=== PATIENT | female | born 1980 | race Caucasian/White ===

== ENCOUNTER 2019-04-08 10:42 | Emergency (ER) | payer OTHER, SELFPAY ==
[2019-04-08 10:47] VITALS: BP 161/94; PULSE 85; RESP 16; TEMP 36.4; O2SAT 95
--- NOTE | 2019-04-08 11:10 | DI.US.S_ITS ---
PROCEDURE: US PELVIC COMPLETE INDICATIONS: RIGHT PELVIC PAIN, PLEASE LOOK FOR APPY, TOO, IF POSSIBLE TECHNIQUE: Real-time scanning was performed of the pelvic organs, with image documentation. Additional endovaginal scanning was necessary due to incomplete visualization of the adnexal and endometrial structures by transabdominal scanning. COMPARISON: None. FINDINGS: Transabdominal scanning: Limited scanning through the kidneys shows no hydronephrosis. No pathologic free abdominal or pelvic fluid. Endovaginal scanning: Uterus: Uterus is normal in size at 7.5 x 5.3 x 3.8 cm. The endometrium measures 8 mm in combined thickness. There is a small subserosal fibroid along the surface of the uterus that is positional in the mid aspect of the anterior uterus measuring up to 1.4 cm. No significant fluid is seen within the endometrium. The cervix is within normal limits. Ovaries: The right ovary measures 2.5 x 2.2 x 1.9 cm. The left ovary measures 3.8 x 3.8 x 1.7 cm. Both ovaries are normal in size. No cystic or solid abnormality is appreciated. Follicles are present on both ovaries. Other: The appendix is not definitely seen. However, sonographic imaging of the right lower quadrant demonstrates multiple borderline prominent lymph nodes within the ileocolic region. No free fluid or loculated fluid collections are evident. IMPRESSION: 1. Unremarkable ovaries. 2. Small subserosal uterine fibroid. 3. The appendix is not definitely seen. Borderline prominent right lower quadrant lymph nodes are evident. Please correlate clinically to exclude mesenteric adenitis. If there is high clinical concern for acute appendicitis, a contrast enhanced CT of the abdomen and pelvis is recommended for further evaluation. Dictated by: Pramod Ramos M.D. on 04/08/2019 at 12:14 Approved by: Pramod Ramos M.D. on 04/08/2019 at 12:20
--- NOTE | 2019-04-08 11:10 | DI.US.S_ITS ---
PROCEDURE: US PERIPH VENOUS LOW EXTREM RT INDICATIONS: RIGHT LEG PAIN, POST-OP AND CANCER PATIENT TECHNIQUE: Real-time imaging, as well as color and pulse Doppler interrogation, were performed of the lower extremity deep veins from the inguinal ligament to the popliteal fossa. COMPARISON: None. FINDINGS: The common femoral, femoral and popliteal veins are normally compressible, and free of intraluminal thrombus. Color and pulse Doppler demonstrate normal phasic intraluminal flow. There is normal augmentation response to distal compression maneuver. Targeted sonographic imaging along the lateral aspect of the upper thigh demonstrates no sonographic fluid collection or solid mass. IMPRESSION: No evidence of deep vein thrombosis of the right lower extremity. Dictated by: Pramod Ramos M.D. on 04/08/2019 at 11:58 Approved by: Pramod Ramos M.D. on 04/08/2019 at 11:59
--- NOTE | 2019-04-08 11:12 | ED.EXTPRO ---
HPI - Extremity Problem General Chief complaint: Extremity Problem,Nontraumatic Stated complaint: Rt leg and groin pain Time Seen by Provider: 04/08/19 10:50 Source: patient Mode of arrival: ambulatory Limitations: no limitations History of Present Illness HPI Narrative: Patient presents the emergency department complaining of right groin pain. Patient is currently postop day 5 after a left mastectomy for 2 malignant breast masses. She states she has been getting up and about after the surgery, and going for walks with her . She states that she has not had any fevers or chills. No dysuria. She states her appetite has been somewhat decreased. No right lower quadrant pain. No pelvic pain. No back pain currently. Patient has never been a smoker. She was on control pills until about 1 month ago, when she was taken off of them secondary to the cancer. Patient denies any history of known DVT in any family members, but states her mother did have varicose veins and may have had clots and nose. Patient states she has noticed clots in her drain from her mastectomy site, and wonders if she ?clots easily?. Patient has not had a known injury to the inguinal area. She states that the pain feels like a ?muscle soreness? and seems to be a little worse when she raises her right leg. She has not noticed any swelling in her legs. Related Data Home Medications Medication Instructions Recorded Confirmed solifenacin [Vesicare] 10 mg PO DAILY 04/08/19 04/09/19 Allergies Allergy/AdvReac Type Severity Reaction Status Date / Time ibuprofen AdvReac Mild Nausea Verified 04/09/19 16:19 Review of Systems Constitutional Denies chills, Denies fever(s), Denies lethargy and Denies weakness Eyes Denies change in vision, Denies eye discharge, Denies irritation and Denies loss of vision ENT Ears, Nose, Mouth, and Throat: Denies change in voice, Denies neck pain and Denies sore throat Cardiovascular Denies chest pain, Denies irregular heart rhythm, Denies lightheadedness, Denies palpitations, Denies dyspnea, Denies dyspnea on exertion and Denies orthopnea Respiratory Denies cough, Denies dyspnea, Denies dyspnea on exertion and Denies wheezing Gastrointestinal Gastrointestinal: Denies abdominal pain, Denies change in bowel habits, Denies diarrhea, Denies nausea and Denies vomiting Genitourinary Denies hematuria, Denies flank pain, Denies urinary incontinence and Denies urinary urgency Musculoskeletal Denies neck pain Comments: Right inguinal pain Integumentary/Breasts Denies pruritus, Denies erythema, Denies rash and Denies wounds Neurologic Denies confusion, Denies loss of vision and Denies weakness Psychiatric Denies anxiety, Denies confusion, Denies depression, Denies homicidal ideation and Denies suicidal ideation Endocrine Denies palpitations Hematologic/Lymphatic Denies easy bruising Allergic/Immunologic Denies wheezing [facility] Medical History Breast cancer (Acute) Surgical History H/O left mastectomy (Acute ~04/03/19) Social History Smoking Status: Never smoker Social History Smoking Status: Never smoker Exam Initial Vital Signs Initial Vital Signs: Vital Signs Temperature 97.5 F L 04/08/19 10:47 Pulse Rate 85 04/08/19 10:47 Respiratory Rate 16 04/08/19 10:47 Blood Pressure 161/94 H 04/08/19 10:47 Pulse Oximetry 95 04/08/19 10:47 Const General: cooperative and well developed Nutritional Appearance: well nourished Orientation: alert, awake, oriented x3 and not confused [facility] Head: normocephalic and atraumatic Ears: external ears normal and TM's normal bilaterally Nose: external nose normal and No nasal discharge Face and sinus: sinuses nontender, face symmetric, no sinus tenderness and No dry mucous membranes Mouth: oral mucosae normal and moist mucous membranes Teeth and gingiva: dentition normal Throat: tonsils normal and uvula midline Eyes General: appearance normal, both eyes and all related structures Eyelids: eyelids normal Conjunctivae: conjunctivae normal Sclera: sclerae normal Pupils: PERRL EOM: EOM intact bilaterally Neck Neck: normal visual inspection, trachea midline, No lymphadenopathy, No midline deformity and No JVD Lymphatic: No lymphedema Chest Chest: normal inspection of the chest Resp Effort & Inspection: normal respiratory effort, able to speak in complete sentences, no respiratory distress and no use of accessory muscles Auscultation: clear to auscultation bilaterally, no rales, no rhonchi and no wheezes Cardio Rate: regular rate Rhythm: regular rhythm Heart Sounds: no click, no gallops, no murmurs and no rubs Pulses: normal peripheral pulses GI Inspection: non-distended Palpation: soft, no hepatosplenomegaly, No guarding, No pulsatile mass and tender (Mild, right lower quadrant and pelvis) Auscultation: normal bowel sounds Back/Spine/Pelvis Back: No CVA tenderness Cervical Spine: cervical ROM normal and No pain with cervical ROM Thoracic/Lumbar Spine: thoracic and lumbar spine normal to inspection Skin General: no rashes or lesions noted, No jaundice and No petechiae Neuro General: alert, oriented x3, gait normal and no focal motor deficits Speech: speech normal Extrem General: full ROM, no clubbing, cyanosis or edema, no pedal edema and no calf tenderness Other: Moderate tenderness over right inguinal ligament and hip flexor origins. Femoral pulse is strong and intact. No calf tenderness or swelling. No tenderness of the distal quadriceps musculature on the right. Psych Appearance: well kempt Mental Status: mental status grossly normal Attitude: cooperative Thought Content: normal and suicidality Judgment: judgment good Course Course Narrative: Patient was worked up with laboratory studies, as well as ultrasound of the right lower extremity and the pelvis. Labs were unremarkable. Ultrasound demonstrated no DVT. Pelvic ultrasound was also unremarkable. Patient declined pain medication in the emergency department. I have discussed with the patient and her the results of diagnostic testing, and that I feel the patient's symptoms are most likely due to muscular strain. We have discussed home management of the symptoms, as well as the usual indications for return. Orders Ordered: Discontinued Medications Ibuprofen (Advil) 800 mg PO NOW ONE Stop: 04/08/19 11:13 Last Admin: 04/08/19 11:21 Dose: 800 mg Documented by: KEYLA Vital Signs - 8 hr 04/08/19 10:47 Temperature 97.5 F L Pulse Rate 85 Respiratory Rate 16 Blood Pressure 161/94 H Pulse Oximetry 95 MDM - Extremity (Nontraumatic) Medical Records Attestation: I reviewed the patient's medical records. Lab Data Attestation: I reviewed the patient's lab results. Result diagrams: 04/08/19 10:53 04/08/19 10:53 Lab Results 04/08/19 04/08/19 Range/Units 10:53 10:53 WBC 7.9 (4.5-11.0) X10^3/uL RBC 4.39 (4.0-5.2) X10^6/uL Hgb 14.1 (12.0-16.0) g/dL Hct 40.5 (36-46) % MCV 92.2 (80-100) fL MCH 32.0 (26-34) PG MCHC 34.7 (30-36) % RDW 13.2 (11.6-14.8) % Plt Count 312 (150-400) X10^3/uL Neut % (Auto) 72.7 (50-75) % Lymph % (Auto) 21.9 L (25-40) % [place] % (Auto) 4.0 (3-14) % Eos % (Auto) 0.9 L (2-4) % Baso % (Auto) 0.5 (0-2) % Neut # (Auto) 5800 (3920-1281) /uL Lymph # (Auto) 1700 (2926-0709) /uL [place] # (Auto) 300 (0-900) /uL Eos # (Auto) 100 (0-450) /uL Baso # (Auto) 0 (0-100) /uL Sodium 138 (137-145) mmol/L Potassium 4.1 (3.4-5.1) mmol/L Chloride 105 (98-107) mmol/L Carbon Dioxide 23 (22-32) mmol/L BUN 6 L (7-17) mg/dL Creatinine 0.40 L (0.52-1.04) mg/dL Estimated GFR > 60.0 (>60) mL/min BUN/Creatinine Ratio 15.0 (6-22) Glucose 106 H (70-100) mg/dL Calcium 9.7 (8.4-10.2) mg/dL Total Bilirubin 0.6 (0.2-1.3) mg/dL AST 39 H (14-36) IU/L ALT 24 (9-52) IU/L Alkaline Phosphatase 112 (38-126) U/L Total Protein 7.8 (6.3-8.2) g/dL Albumin 4.6 (3.5-5.0) g/dL Globulin 3.2 (1.7-4.1) g/dL Albumin/Globulin Ratio 1.4 (1.0-2.8) Imaging Data Venous US: Radiologist's impression: PROCEDURE: US PERIPH VENOUS LOW EXTREM RT INDICATIONS: RIGHT LEG PAIN, POST-OP AND CANCER PATIENT TECHNIQUE: Real-time imaging, as well as color and pulse Doppler interrogation, were performed of the lower extremity deep veins from the inguinal ligament to the popliteal fossa. COMPARISON: None. FINDINGS: The common femoral, femoral and popliteal veins are normally compressible, and free of intraluminal thrombus. Color and pulse Doppler demonstrate normal phasic intraluminal flow. There is normal augmentation response to distal compression maneuver. Targeted sonographic imaging along the lateral aspect of the upper thigh demonstrates no sonographic fluid collection or solid mass. IMPRESSION: No evidence of deep vein thrombosis of the right lower extremity. Dictated by: Pramod Ramos M.D. on 04/08/2019 at 11:58 Approved by: Pramod Ramos M.D. on 04/08/2019 at 11:59 Pelvic ultrasound: Radiologist's impression: PROCEDURE: US PELVIC COMPLETE INDICATIONS: RIGHT PELVIC PAIN, PLEASE LOOK FOR APPY, TOO, IF POSSIBLE TECHNIQUE: Real-time scanning was performed of the pelvic organs, with image documentation. Additional endovaginal scanning was necessary due to incomplete visualization of the adnexal and endometrial structures by transabdominal scanning. COMPARISON: None. FINDINGS: Transabdominal scanning: Limited scanning through the kidneys shows no hydronephrosis. No pathologic free abdominal or pelvic fluid. Endovaginal scanning: Uterus: Uterus is normal in size at 7.5 x 5.3 x 3.8 cm. The endometrium measures 8 mm in combined thickness. There is a small subserosal fibroid along the surface of the uterus that is positional in the mid aspect of the anterior uterus measuring up to 1.4 cm. No significant fluid is seen within the endometrium. The cervix is within normal limits. Ovaries: The right ovary measures 2.5 x 2.2 x 1.9 cm. The left ovary measures 3.8 x 3.8 x 1.7 cm. Both ovaries are normal in size. No cystic or solid abnormality is appreciated. Follicles are present on both ovaries. Other: The appendix is not definitely seen. However, sonographic imaging of the right lower quadrant demonstrates multiple borderline prominent lymph nodes within the ileocolic region. No free fluid or loculated fluid collections are evident. IMPRESSION: 1. Unremarkable ovaries. 2. Small subserosal uterine fibroid. 3. The appendix is not definitely seen. Borderline prominent right lower quadrant lymph nodes are evident. Please correlate clinically to exclude mesenteric adenitis. If there is high clinical concern for acute appendicitis, a contrast enhanced CT of the abdomen and pelvis is recommended for further evaluation. Dictated by: Pramod Ramos M.D. on 04/08/2019 at 12:14 Approved by: Pramod Ramos M.D. on 04/08/2019 at 12:20 Discharge Plan Departure Patient Disposition: Home Clinical Impression: Inguinal strain Qualifiers: Encounter type: initial encounter Laterality: right Qualified Code(s): S76.211A - Strain of adductor muscle, fascia and tendon of right thigh, initial encounter Discharge Date/Time: 04/08/19 14:16 Instructions: DI for Muscle Strain Activity Restrictions/Additional Instructions: Your labs and ultrasounds look good. There is no free fluid to indicate inflammation of the appendix. Additionally, you have minimal tenderness over the appendix, and the symptoms of right groin and thigh pain are not typical of appendicitis. No blood clot is seen in your leg circulation, and the blood vessels appear patent. Most likely, the soreness in your inguinal area and upper thigh are muscular in origin, and will resolve on their own. Please follow up with your surgeon, as planned, and your primary doctor, as needed. Prescriptions: No Action solifenacin [Vesicare] 10 mg Tablet 10 mg PO DAILY RF: 0 Referrals: [facility] [Provider Group]
[2019-04-08] MEDS: IBUPROFEN 400 MG TABLET 800 MG PO (11:21)
[2019-04-08 11:29] LABS: Alanine Aminotransferase 24 IU/L (9-52); Albumin 4.6 g/dL (3.5-5.0); Albumin Globulin Ratio 1.4 (1.0-2.8); Alkaline Phosphatase 112 U/L (38-126); Aspartate Aminotransferase 39 IU/L (14-36); Bilirubin Total 0.6 mg/dL (0.2-1.3); Blood Urea Nitrogen 6 mg/dL (7-17); Calcium 9.7 mg/dL (8.4-10.2); Carbon Dioxide 23 mmol/L (22-32); Chloride 105 mmol/L (98-107); Estimated Glomerular Filt Rate > 60.0 mL/min (>60); Globulin 3.2 g/dL (1.7-4.1); Glucose 106 mg/dL (70-100); HEMOLYSIS 19 (0-50); Potassium 4.1 mmol/L (3.4-5.1); Sodium 138 mmol/L (137-145); Total Protein 7.8 g/dL (6.3-8.2)
[2019-04-08 11:33] LABS: Add Manual Diff / Slide Review NO; Basophils Absolute Auto 0 /uL (0-100); Basophils Percent Auto 0.5 % (0-2); Eosinophils Absolute Auto 100 /uL (0-450); Eosinophils Percent Auto 0.9 % (2-4); Hematocrit 40.5 % (36-46); Hemoglobin 14.1 g/dL (12.0-16.0); Lymphocytes Absolute Auto 1700 /uL (1100-4500); Lymphocytes Percent Auto 21.9 % (25-40); Mean Corpuscular HGB Conc 34.7 % (30-36); Mean Corpuscular Volume 92.2 fL (80-100); Monocytes Absolute Auto 300 /uL (0-900); Neutrophils Absolute Auto 5800 /uL (1500-7000); Neutrophils Percent Auto 72.7 % (50-75); Platelet Count 312 X10^3/uL (150-400); Red Blood Cell Count 4.39 X10^6/uL (4.0-5.2); Red Cell Distribution Width 13.2 % (11.6-14.8); White Blood Cell Count 7.9 X10^3/uL (4.5-11.0)
[2019-04-08 14:05] VITALS: BP 155/85; PULSE 59; RESP 14; O2SAT 98
== END 2019-04-08 14:16 | disposition home or self-care (01) ==
PROVIDERS: Emergency Provider Emergency Medicine
DX: S76.211A Strain of adductor muscle, fascia and tendon of right thigh, initial encounter (principal)
CPT/HCPCS: 36591; 76856; 80053; 85025; 93971; 99282; 99284

== ENCOUNTER → 2019-04-09 16:09 | Outpatient (CLI) | payer OTHER, SELFPAY ==
--- NOTE | 2019-04-09 16:11 | DI.RAD.S_ITS ---
PROCEDURE: XR FACIAL BONES MIN 3V INDICATIONS: pain of left side of nose and by eye after hitting it TECHNIQUE: 3 views of the facial bones were acquired. COMPARISON: None. FINDINGS: Sinuses: Visualized sinuses demonstrate no air-fluid levels or mucosal thickening. Bones: No fractures. No suspicious bony lesions. Orbital rims and zygomatic arches appear intact. Soft tissues: No suspicious soft tissue densities. IMPRESSION: No facial bone fractures. Dictated by: Denisse Bowers M.D. on 04/09/2019 at 16:54 Approved by: Denisse Bowers M.D. on 04/09/2019 at 16:55
== END ==
PROVIDERS: Visit Provider Physician Assistant
DX: R51 Headache (principal); W22.8XXA Striking against or struck by other objects, initial encounter
CPT/HCPCS: 70150

== ENCOUNTER 2019-06-17 11:05 | Day surgery (SDC) | payer OTHER, SELFPAY ==
[2019-06-12 15:23] VITALS: BMI 25.4
[2019-06-17] VITALS (8 sets, daily range): BP systolic 153–164; BP diastolic 84–99; PULSE 66–95; RESP 5–17; TEMP 35.9–36.8; O2SAT 92–100; BMI 24.6
--- NOTE | 2019-06-17 | DI.RAD.S_ITS ---
PROCEDURE: XR CHEST 1V INDICATIONS: PORT A CATH TECHNIQUE: One view of the chest was acquired. COMPARISON: None. FINDINGS: Surgical changes and devices: Right chest Port-A-Cath, the tip of which projects to the superior vena cava. Lungs and pleura: Lungs are clear. No pleural effusions or pneumothorax. Mediastinum: Mediastinal contours appear normal. Heart size is normal. Bones and chest wall: No suspicious bony lesions. Overlying soft tissues appear unremarkable. IMPRESSION: Status post right Port-A-Cath placement with no evidence of pneumothorax Dictated by: Zelalem Lr M.D. on 06/17/2019 at 16:37 Approved by: Zelalem Lr M.D. on 06/17/2019 at 16:38
[2019-06-17] MEDS: LACTATED RINGERS 1,000 ML 100 ML IV (11:55)
--- NOTE | 2019-06-17 13:02 | PM.HP.1 ---
History of Present Illness History of Present Illness Date Patient Seen: 06/17/19 Time Patient Seen: 13:02 Chief complaint: [id number] Narrative: The patient is a woman who underwent a left-sided mastectomy for 2 separate breast cancers in the same breast. This was done in March of this year. She was in the process of moving and then has delayed somewhat her treatment. She is now about to start treatment for her breast cancer and I was asked to place a port. the mastectomy was done in [facility]. Patient History Medical History Breast cancer (Acute) Former smoker (Acute) History of UTI (Acute) Prolactinoma (Acute) Urinary frequency (Acute) Surgical History H/O left mastectomy (Acute 04/03/19) Family & Social History Social History: household members spouse Tobacco & Substance use: Smoking Status Never smoker alcohol intake never alcohol intake frequency 0-2 drinks per day Substance Use Type does not use Meds Home Medications and Allergies Home Medications Medication Instructions Recorded Confirmed Type solifenacin [Vesicare] 10 mg PO DAILY 04/08/19 06/17/19 History Allergies Allergy/AdvReac Type Severity Reaction Status Date / Time ibuprofen AdvReac Mild Nausea Verified 06/17/19 11:22 Review of Systems Review of Systems ROS Unobtainable: All systems reviewed & are unremarkable except as noted in HPI and below Exam Vital Signs (past 8 hours): - 06/17/19 11:27 Temperature 98.2 F Pulse Rate 74 Respiratory Rate 16 Blood Pressure 154/99 H Pulse Oximetry 99 Oxygen Delivery Method Room Air Narrative Exam Narrative: Operative no apparent distress. Her neck is supple. No nodes in the neck or supraclavicular areas. Lungs are clear to auscultation without rales or rhonchi. Heart regular rate and rhythm without murmur gallop. Her mastectomy site is well-healed. No rashes of the chest wall. Assessment & Plan Assessment & Plan narrative: Patient for placement of a Port-A-Cath. I have discussed the procedure and rationale with her. Risks of bleeding, infection, lung collapse, DVT with arm swelling or pulmonary embolism all discussed with her. She appears to understand wishes to proceed.
--- NOTE | 2019-06-17 13:07 | PM.PREOP ---
Pre-operative Note Interval Note History & Physical reviewed/Exam performed by Physician: Yes Changes to H&P: No
[2019-06-17] MEDS: CEFAZOLIN 2 GM/100 ML FROZ.PIGGY IV (13:09)
--- NOTE | 2019-06-17 13:30 | SUR.OPER ---
Supine on padded OR bed, head on gel donut, towel roll between patient's shoulders, arms padded and tucked at sides, legs uncrossed, safety belt at thigh.
[2019-06-17] MEDS: HEPARIN 5,000 UNIT, SODIUM CHLORIDE 0.9% 50 ML IV (13:36)
[2019-06-17] MEDS: LIDOCAINE 1% 20 ML INJ (13:36)
--- NOTE | 2019-06-17 14:13 | P.OP_ITS ---
Operative Date/Time/Diagnoses Date of procedure: 06/17/19 Time of procedure: 14:00 Pre-op diagnosis: Breast cancer left-sided Post-op diagnosis: same Procedure & Clinicians Procedure: Placement of right subclavian Port-A-Cath Same procedure as scheduled: Yes Indications: IV access for chemotherapy Surgeon: Be Chakraborty Click Yes if Unassisted: Yes Anesthesia Type: General Operative Notes Findings: Tip in the SVC. No pneumothorax. Closure Type: primary Specimen(s): none sent Prosthetic devices, grafts, tissues, transplants, or devices: Port Estimated Blood Loss (mL): 5 Blood products transfused: none Procedure in detail: The patient is placed supine on the operating table underwent general LMA anesthesia. She was prepped and draped in the usual fashion. Rule it been placed between her shoulders. She is placed in Trendelenburg a field block was performed under the right clavicle. Transverse incision was made and carried in the subcu fat. A pocket was created above the fascia. Needle was inserted on 1st attempt in the subclavian vein. The guidewire was passed through the needle and the needle removed. The wire appeared to be going in the appropriate location. Dilator and introducer were passed over the guidewire and the guide where and dilator were removed leaving the introducer in place. The Port-A-Cath was tapered to appropriate length. It was inserted into the pocket and then the catheter was inserted into the introducer. The introducer was peeled away leaving the catheter tip in the distal SVC. The subcu was closed with interrupted 3 0 Vicryl. The skin was tosin sed with a running 4 0 Vicryl subcuticular stitch and Steri-Strips. The patient was awakened and extubated taken recovery room good condition. Complications: none Post-operative Condition: stable Disposition: PACU
== END 2019-06-17 14:55 | disposition home or self-care (01) ==
PROVIDERS: Visit Provider Specialist
PROC: (CPT 36561; principal; 2019-06-17 12:00)
DX: C50.812 Malignant neoplasm of overlapping sites of left female breast (principal); Z45.2 Encounter for adjustment and management of vascular access device; Z17.0 Estrogen receptor positive status [ER+]; Z17.1 Estrogen receptor negative status [ER-]
CPT/HCPCS: 36561; 36415; 71045; 76000; 80053; 85025; C1788; J0690; J1100; J1644; J2405; J2704; J3010

== ENCOUNTER → 2019-06-20 06:57 | Outpatient (CLI) | payer OTHER, SELFPAY ==
--- NOTE | 2019-06-20 06:59 | DI.ECHO.S_ITS ---
[facility] +---------+ [facility] +---------+ : : [address] : [place] [address] : : : : [id number] : : : : Phone: [phone]+ Echocardiogram Report + + :Name: SYLVIA BOWLES Study Date: 06/20/2019 Height: 60 in : :[facility] Weight: 132 lb : : Gender: Female BSA: 1.6 m2 : :: 1980 Age: 39 yrs BP: 140/98 mmHg: :Reason For Study: BREAST CA : : Performed By: Yash aDvis : :Referring: KARLA ROWLAND : + + Interpretation Summary There is normal left ventricular wall thickness. The ejection fraction is estimated to be 60-65%. There is no significant valvular heart disease. Procedure: A two-dimensional transthoracic echocardiogram with color flow and Doppler was performed. The study quality was technically good. There is no prior echocardiogram noted for this patient. The patient was in normal sinus rhythm during the exam. Left Ventricle: The left ventricle is normal in size. There is normal left ventricular wall thickness. The ejection fraction is estimated to be 60-65%. There are no focal wall motion abnormalities. Right Ventricle: The right ventricle is normal in size and function. Atria: Both atria are normal in size. The interatrial septum is intact with no evidence for an atrial septal defect. Mitral Valve: The mitral valve is normal in structure and function. There is trace mitral regurgitation. Aortic Valve: The aortic valve is trileaflet. The aortic valve opens well. No aortic regurgitation is present. Tricuspid Valve: The tricuspid valve is normal in structure and function. There is trace tricuspid regurgitation. The right ventricular systolic pressure is estimated to be at least 19 mmHg based on an estimated right atrial pressure of 3 mm Hg. Pulmonic Valve: The pulmonic valve is normal in structure and function. There is trace pulmonic regurgitation. Great Vessels: The aortic root is normal size. The dimensions of the ascending aorta are normal. The pulmonary artery is normal size. The IVC is of normal diameter and collapses greater than 50% with a sniff. This suggests a low right atrial pressure of 3 mm Hg. Pericardium/ Pleura There is no pericardial effusion. There is no pleural effusion. MMode/2D Measurements & Calculations LVIDd: 4.6 cm LVOT diam: 2.1 cm LVIDs: 3.4 cm Ao root diam: 2.6 cm FS: 26.7 % Aortic Jxn: 2.1 cm EPSS: 0.53 cm asc Aorta Diam: 3.2 cm IVSd: 0.55 cm LVPWd: 0.62 cm LV morris. diameter/BSA (cm/m^2): 2.9 LV sys. diameter/BSA (cm/m^2): 2.1 LA dimension: 2.8 cm RA long axis: 4.0 cm LA A2 area: 17.0 cm2 RA area: 12.7 cm2 LA A4 area: 16.3 cm2 RA vol: 34.9 ml LA length (vol): 5.2 cm RA : 22.3 ml/m2 LA vol: 45.6 ml IVC diam: 2.0 cm LA vol index: 29.1 ml/m2 Doppler Measurements & Calculations Ao V2 max: 131.2 cm/sec LVOT Max Soren: 94.2 cm/sec Ao V2 mean: 94.4 cm/sec LV V1 max P.5 mmHg Ao max P.9 mmHg LV V1 VTI: 20.8 cm Ao mean P.9 mmHg BARBI(I,D): 2.6 cm2 Ao V2 VTI: 27.7 cm BARBI(V,D): 2.5 cm2 sev ratio: 0.75 BARBI indexed to BSA (cm^2/m^2): 1.6 MV E max soren: 91.7 cm/sec TR max soren: 197.9 cm/sec MV A max soren: 60.0 cm/sec TR max P.7 mmHg MV E/A: 1.5 PA V2 max: 83.2 cm/sec Med Peak E' Soren: 7.7 cm/sec PA V2 mean: 57.8 cm/sec E/E' med: 11.8 PA mean P.5 mmHg Lat Peak E' Soren: 14.2 cm/sec PA pr(Accel): 6.6 mmHg E/E' lat: 6.5 PA Accel Time: 0.16 sec E/e' average: 9.2 MV dec time: 0.13 sec SV(LVOT): 71.4 ml Reading Physician:09:11 AM
== END ==
PROVIDERS: Visit Provider Internal Medicine Hematology & Oncology
DX: C50.812 Malignant neoplasm of overlapping sites of left female breast (principal); Z17.0 Estrogen receptor positive status [ER+]
CPT/HCPCS: 93306

== ENCOUNTER 2019-08-15 20:02 | Emergency (ER) | payer OTHER, SELFPAY ==
[2019-08-15 20:09] VITALS: BP 169/94; PULSE 72; RESP 16; TEMP 36.6; O2SAT 98
[2019-08-15 20:23] LABS: Bacteria Urine None Seen
[2019-08-15 20:25] LABS: Appearance Urine UA CLEAR; Bilirubin Urine UA NEGATIVE (NEGATIVE); Glucose Urine UA TRACE g/dL (Negative); Ketones Urine UA NEGATIVE (NEGATIVE); Leukocyte Esterase Urine UA NEGATIVE (NEGATIVE); Nitrite Urine UA POSITIVE (Negative); Occult Blood Urine UA NEGATIVE (Negative); Protein Urine UA TRACE (Negative); Specific Gravity Urine UA <=1.005 (1.000-1.035)
[2019-08-15 20:28] LABS: Color Urine UA Orange; pH Urine UA 6.5 (4.5-8.0)
[2019-08-15 20:35] LABS: RBC Urine 0-1/HPF (0-5/HPF); WBC Urine 0-1/HPF (0-5/HPF)
[2019-08-15 20:36] LABS: Culture Indicated Urine Specimen Cultured
[2019-08-15 21:02] VITALS: PULSE 72; RESP 18; O2SAT 96
[2019-08-15 22:01] VITALS: BP 127/78; PULSE 63; RESP 19; O2SAT 99
[2019-08-15 22:15] LABS: Add Manual Diff / Slide Review NO; Basophils Absolute Auto 0 /uL (0-100); Basophils Percent Auto 0.3 % (0-2); Eosinophils Absolute Auto 0 /uL (0-450); Hematocrit 33.8 % (36-46); Hemoglobin 11.3 g/dL (12.0-16.0); Lymphocytes Absolute Auto 2100 /uL (1100-4500); Lymphocytes Percent Auto 48.8 % (25-40); Mean Corpuscular HGB Conc 33.5 % (30-36); Mean Corpuscular Hemoglobin 31.3 PG (26-34); Mean Corpuscular Volume 93.5 fL (80-100); Monocytes Absolute Auto 200 /uL (0-900); Monocytes Percent Auto 4.1 % (3-14); Neutrophils Absolute Auto 2000 /uL (1500-7000); Neutrophils Percent Auto 45.8 % (50-75); Platelet Count 269 X10^3/uL (150-400); Red Blood Cell Count 3.62 X10^6/uL (4.0-5.2); Red Cell Distribution Width 14.9 % (11.6-14.8); White Blood Cell Count 4.3 X10^3/uL (4.5-11.0)
[2019-08-15 22:21] LABS: Blood Urea Nitrogen 6 mg/dL (7-17); Calcium 9.3 mg/dL (8.4-10.2); Carbon Dioxide 27 mmol/L (22-32); Chloride 104 mmol/L (98-107); Estimated Glomerular Filt Rate > 60.0 mL/min (>60); Glucose 91 mg/dL (70-100); HEMOLYSIS < 15 (0-50); Potassium 3.6 mmol/L (3.4-5.1); Sodium 140 mmol/L (137-145)
--- NOTE | 2019-08-15 22:31 | ED.FEMALEGU ---
HPI - Female Genitourinary General Chief complaint: Urogenital-Female Stated complaint: thinks kidney or bladder infection Time Seen by Provider: 08/15/19 20:50 Source: patient Mode of arrival: Ambulatory Limitations: no limitations History of Present Illness HPI Narrative: 39-year-old female nonsmoker with breast cancer, currently being treated by chemotherapy every Monday through her port presents with ongoing dysuria, frequency and urgency as well as some suprapubic tenderness. She has had 2 weeks of urinary tract symptoms and has completed 1 week of nitrofurantoin followed by one week of Cipro. Patient denies systemic findings such as fever, chills nor nausea or vomiting. She denies upper respiratory complaints such is runny nose sore throat or cough. She has no chest pain shortness of breath or other. She has an appointment next week with urology. She denies vaginal bleeding or discharge. MD Complaint: dysuria Onset (ago): day(s) Location: suprapubic Severity: mild Quality: Aching Exacerbating factors: urination Urinary symptoms: Difficulty Urinating, Dysuria, Frequency and Urgency Patient : No Related Data Home Medications Medication Instructions Recorded Confirmed solifenacin [Vesicare] 10 mg PO DAILY 04/08/19 07/22/19 losartan 50 mg PO DAILY 07/29/19 07/29/19 Previous Rx's Medication Instructions Recorded hydrocodone-acetaminophen [[place]] 1 tab PO Q4H PRN #10 tab 06/17/19 ondansetron 4 mg PO Q6H PRN #30 tab 06/24/19 lorazepam [Ativan] 0.5 mg PO Q6H PRN #30 tab 06/27/19 lorazepam 1 mg PO BEDTIME PRN #10 tab 07/29/19 ciprofloxacin HCl 500 mg PO BID #14 tab 08/06/19 cephalexin [Keflex] 500 mg PO QID 10 Days #40 cap 08/15/19 Allergies Allergy/AdvReac Type Severity Reaction Status Date / Time ibuprofen AdvReac Mild Nausea Verified 07/08/19 15:06 Review of Systems Constitutional Constitutional: Denies chills, Denies fatigue, Denies fever(s), Denies frequent falls, Denies lethargy and Denies weakness Eyes Eyes: Denies change in vision, Denies eye discharge, Denies irritation and Denies loss of vision ENT Ears, Nose, Mouth, and Throat: Denies change in voice, Denies dizziness, Denies neck pain, Denies sore throat and Denies throat swelling Cardiovascular Cardiovascular: Denies chest pain, Denies irregular heart rhythm, Denies lightheadedness, Denies palpitations, Denies dyspnea, Denies dyspnea on exertion and Denies orthopnea Respiratory Respiratory: Denies cough, Denies dyspnea, Denies dyspnea on exertion and Denies wheezing Gastrointestinal Gastrointestinal: Denies abdominal pain, Denies change in bowel habits, Denies diarrhea, Denies nausea and Denies vomiting Genitourinary Genitourinary: Denies hematuria, Reports dysuria, Denies flank pain, Denies urinary incontinence and Reports urinary urgency Musculoskeletal Musculoskeletal: Denies back pain, Denies muscle weakness, Denies neck pain, Denies numbness and Denies tingling Integumentary/Breasts Skin/Breast: Denies pruritus, Denies erythema, Denies rash and Denies wounds Neurologic Neurologic: Denies behavioral changes, Denies confusion, Denies dizziness, Denies frequent falls, Denies loss of vision, Denies numbness, Denies tingling and Denies weakness Psychiatric Psychiatric: Denies anxiety, Denies behavioral changes, Denies confusion, Denies depression, Denies homicidal ideation and Denies suicidal ideation Endocrine Endocrine: Denies fatigue, Denies flushing and Denies palpitations Hematologic/Lymphatic Hematologic/Lymphatic: Denies easy bruising Allergic/Immunologic Allergic/Immunologic: Denies urticaria, Denies throat swelling and Denies wheezing Patient History Medical History Breast cancer (Acute) Former smoker (Acute) History of UTI (Acute) Prolactinoma (Acute) Urinary frequency (Acute) Surgical History H/O left mastectomy (Acute 04/03/19) alcohol intake frequency: 0-2 drinks per day Substance Use Type: does not use Exam Narrative Exam Narrative: GENERAL: [39] year old patient appears stated age. Well-nourished, well-developed patient, in mild distress. HEAD: Atraumatic. Normocephalic. EYES: Pupils equal round and reactive. Extraocular motions intact. No scleral icterus. No injection or drainage. ENT: Nose without bleeding, purulent drainage. Throat without erythema, tonsillar hypertrophy or exudate. Airway patent. NECK: Trachea midline. Non tender CARDIOVASCULAR: Regular rate and rhythm without murmurs, gallops, or rubs. RESPIRATORY: Clear to auscultation. Breath sounds equal bilaterally. No wheezes, rales, or rhonchi. GASTROINTESTINAL: Abdomen soft, mild suprapubic tenderness, nondistended. EXTREMITIES: No edema or joint tenderness. BACK: Nontender without deformity or crepitance. No flank tenderness. NEURO: AOx3. SKIN: No rash or erythema of visible areas Initial Vital Signs Initial Vital Signs: Vital Signs Temperature 97.9 F 08/15/19 20:09 Pulse Rate 72 08/15/19 20:09 Respiratory Rate 16 08/15/19 20:09 Blood Pressure 169/94 H 08/15/19 20:09 Pulse Oximetry 98 08/15/19 20:09 Course Course Course Narrative: Upon completion of lab evaluation I placed a call to on-call Oncology, Dr. Mayberry, and we sure the opinion that given the patient's rather classic symptoms for UTI and ongoing use of chemotherapy that is in her best interest to be treated, understanding that the labs may have been adversely affected by recent courses of antibiotics. Cultures will be pending. Patient will follow-up closely with her oncology team Monday and urology Monday. She has been given return precautions and understands her diagnosis and plan. Orders Ordered: ED Orders 08/15/19 20:20 UA Complete [Urinalysis and Microscopic] Stat Urine Culture Stat 08/15/19 21:58 Basic Metabolic Panel Stat Complete Blood Count AUTO DIFF Stat Procalcitonin Stat Discontinued Medications Cefazolin Sodium (Keflex 250 Mg Prepack) 1 bottle MISC SEEINSTR ONE Stop: 08/15/19 22:32 Last Admin: 08/15/19 22:36 Dose: 2 cap Documented by: HFARRINGTO Vital Signs Vital signs: Vital Signs - 8 hr 08/15/19 20:09 08/15/19 21:02 08/15/19 22:01 Temperature 97.9 F Pulse Rate 72 72 63 Respiratory Rate 16 18 19 Blood Pressure 169/94 H Blood Pressure [Right Arm] 127/78 Pulse Oximetry 98 96 99 MDM - Female Genitourinary Lab Data Result diagrams: 08/15/19 21:58 08/15/19 21:58 Labs: Lab Results 08/15/19 08/15/19 08/15/19 Range/Units 20:20 21:58 21:58 WBC 4.3 L (4.5-11.0) X10^3/uL RBC 3.62 L (4.0-5.2) X10^6/uL Hgb 11.3 L (12.0-16.0) g/dL Hct 33.8 L (36-46) % MCV 93.5 (80-100) fL MCH 31.3 (26-34) PG MCHC 33.5 (30-36) % RDW 14.9 H (11.6-14.8) % Plt Count 269 (150-400) X10^3/uL Neut % (Auto) 45.8 L (50-75) % Lymph % (Auto) 48.8 H (25-40) % [place] % (Auto) 4.1 (3-14) % Eos % (Auto) 1.0 L (2-4) % Baso % (Auto) 0.3 (0-2) % Neut # (Auto) 2000 (0025-0885) /uL Lymph # (Auto) 2100 (5080-9112) /uL [place] # (Auto) 200 (0-900) /uL Eos # (Auto) 0 (0-450) /uL Baso # (Auto) 0 (0-100) /uL Sodium (137-145) mmol/L Potassium (3.4-5.1) mmol/L Chloride (98-107) mmol/L Carbon Dioxide (22-32) mmol/L BUN (7-17) mg/dL Creatinine (0.52-1.04) mg/dL Estimated GFR (>60) mL/min BUN/Creatinine Ratio (6-22) Glucose (70-100) mg/dL Calcium (8.4-10.2) mg/dL Procalcitonin < 0.05 (<0.5) ng/mL Urine Color [place] Urine Appearance Clear Urine pH 6.5 (4.5-8.0) Ur Specific [place] <=1.005 (1.000-1.035) Urine Protein Trace H (Negative) Urine Glucose (UA) Trace H (Negative) g/dL Urine Ketones Negative (NEGATIVE) Urine Occult Blood Negative (Negative) Urine Nitrate Positive (Negative) Urine Bilirubin Negative (NEGATIVE) Urine Urobilinogen 1.0 (0.2) E.U./dL Ur Leukocyte Esterase Negative (NEGATIVE) Urine RBC 0-1/hpf (0-5/HPF) Urine WBC 0-1/hpf (0-5/HPF) Urine Bacteria None seen (None) Ur Culture Indicated? Specimen cultured 08/15/19 Range/Units 21:58 WBC (4.5-11.0) X10^3/uL RBC (4.0-5.2) X10^6/uL Hgb (12.0-16.0) g/dL Hct (36-46) % MCV (80-100) fL MCH (26-34) PG MCHC (30-36) % RDW (11.6-14.8) % Plt Count (150-400) X10^3/uL Neut % (Auto) (50-75) % Lymph % (Auto) (25-40) % [place] % (Auto) (3-14) % Eos % (Auto) (2-4) % Baso % (Auto) (0-2) % Neut # (Auto) (8093-1601) /uL Lymph # (Auto) (7462-8853) /uL [place] # (Auto) (0-900) /uL Eos # (Auto) (0-450) /uL Baso # (Auto) (0-100) /uL Sodium 140 (137-145) mmol/L Potassium 3.6 (3.4-5.1) mmol/L Chloride 104 (98-107) mmol/L Carbon Dioxide 27 (22-32) mmol/L BUN 6 L (7-17) mg/dL Creatinine 0.50 L (0.52-1.04) mg/dL Estimated GFR > 60.0 (>60) mL/min BUN/Creatinine Ratio 12.0 (6-22) Glucose 91 (70-100) mg/dL Calcium 9.3 (8.4-10.2) mg/dL Procalcitonin (<0.5) ng/mL Urine Color Urine Appearance Urine pH (4.5-8.0) Ur Specific [place] (1.000-1.035) Urine Protein (Negative) Urine Glucose (UA) (Negative) g/dL Urine Ketones (NEGATIVE) Urine Occult Blood (Negative) Urine Nitrate (Negative) Urine Bilirubin (NEGATIVE) Urine Urobilinogen (0.2) E.U./dL Ur Leukocyte Esterase (NEGATIVE) Urine RBC (0-5/HPF) Urine WBC (0-5/HPF) Urine Bacteria (None) Ur Culture Indicated? Discharge Plan Departure Patient Disposition: Home Clinical Impression: Urinary tract infection Qualifiers: Urinary tract infection type: acute cystitis Hematuria presence: without hematuria Qualified Code(s): N30.00 - Acute cystitis without hematuria Discharge Date/Time: 08/15/19 22:41 Instructions: DI for Urinary Tract Infection (UTI) Activity Restrictions/Additional Instructions: *You have been diagnosed with [acute urinary tract infection, suspected by your complaints and exam (unremarkable urine)] *What to do: *Take medications as directed: Your prescription was electronically sent to [facility] *Follow up with your primary care provider in 2-3 days, call for an appointment. Let them know you were seen in the Emergency Department and that we ask that you be seen in follow up *Return to ER if you should have any new, worsening or concerning symptoms Prescriptions: New cephalexin [Keflex] 500 mg capsule 500 mg PO QID 10 Days Qty: 40 RF: 0 No Action ondansetron 4 mg Tablet,Disintegrating 4 mg PO Q6H PRN (Reason: Nausea And Vomiting) Qty: 30 RF: 2 lorazepam [Ativan] 0.5 mg Tablet 0.5 mg PO Q6H PRN (Reason: nausea, chemotherapy and anxie) Qty: 30 RF: 0 losartan 50 mg Tablet 50 mg PO DAILY RF: 0 lorazepam 1 mg Tablet 1 mg PO BEDTIME PRN (Reason: Sleep) Qty: 10 RF: 0 ciprofloxacin HCl 500 mg Tablet 500 mg PO BID Qty: 14 RF: 0 solifenacin [Vesicare] 10 mg Tablet 10 mg PO DAILY RF: 0 hydrocodone-acetaminophen [[place]] 5-325 mg tablet 1 tab PO Q4H PRN (Reason: pain) Qty: 10 RF: 0
[2019-08-15 22:36] LABS: Procalcitonin < 0.05 ng/mL (<0.5)
[2019-08-15] MEDS: cephALEXin 250 MG PREPACK 1 BOTTLE MISC (22:36)
== END 2019-08-15 22:41 | disposition home or self-care (01) ==
PROVIDERS: Emergency Provider Emergency Medicine; Referring Provider Internal Medicine Hematology & Oncology
DX: N30.00 Acute cystitis without hematuria (principal)
CPT/HCPCS: 36415; 80048; 81001; 84145; 85025; 87086; 99283

== ENCOUNTER → 2019-08-23 09:12 | Outpatient (CLI) | payer OTHER, SELFPAY ==
--- NOTE | 2019-08-23 09:34 | DI.CT.S_ITS ---
PROCEDURE: CT ABDOMEN PELVIS WO CON INDICATIONS: Abdominal pain. History of breast cancer on chemotherapy. TECHNIQUE: Noncontrast 5 mm thick sections acquired from the diaphragms to the symphysis. 5 mm thick coronal and sagittal reformats were then performed. For radiation dose reduction, the following was used: automated exposure control, adjustment of mA and/or kV according to patient size. COMPARISON: None. FINDINGS: Image quality: Excellent. Lung bases: Lung bases are clear. Heart size is normal. Patient is status post left mastectomy. Urinary system: Both kidneys are normal in size. No kidney stones. No hydronephrosis or perinephric fat stranding. Both ureters appear non-dilated throughout their expected courses. Bladder wall thickness is normal; no calcified bladder stones. Other solid organs: The liver is heterogeneous in attenuation with evaluation limited by absence of intravenous contrast. Gallbladder appears within normal limits without calcified gallstones. There is an ill-defined region of hypoattenuation within the anterior pancreatic head. No peripancreatic fat stranding or fluid collections. No definite pancreatic duct dilatation. Spleen is normal in size. No adrenal nodules. Kidneys demonstrate no hydronephrosis. Peritoneum and bowel: Unenhanced bowel loops demonstrate normal wall thickness and caliber. No evidence of appendicitis. No free fluid or air. Nodes and vessels: No retroperitoneal or mesenteric adenopathy by size criteria. Aorta and inferior vena cava are normal in caliber. Abdominal wall: No ventral hernias. Pelvis: No free pelvic fluid. No inguinal hernias or adenopathy. Bones: No suspicious bony lesions. No vertebral body compression fractures. IMPRESSION: 1. No evidence of nephrolithiasis or hydronephrosis. 2. Heterogeneous appearance of the hepatic parenchyma with evaluation limited in absence of intravenous contrast. Recommend followup evaluation with a contrast enhanced study when clinically feasible. 3. Indistinct region of hypoattenuation anteriorly in the pancreatic head without pancreatic duct dilatation. The findings are incompletely evaluated in the absence of intravenous contrast. Further evaluation may also be obtained with a contrast enhanced study when clinically feasible. Dictated by: Jean Nguyễn M.D. on 08/23/2019 at 10:58 Approved by: Jean Nguyễn M.D. on 08/23/2019 at 11:04
== END ==
PROVIDERS: Visit Provider Urology
DX: R10.9 Unspecified abdominal pain (principal); C50.812 Malignant neoplasm of overlapping sites of left female breast; C50.412 Malignant neoplasm of upper-outer quadrant of left female breast; Z17.0 Estrogen receptor positive status [ER+]; Z17.1 Estrogen receptor negative status [ER-]
CPT/HCPCS: 74176

== ENCOUNTER → 2019-09-03 11:01 | Outpatient (CLI) | payer OTHER, SELFPAY ==
--- NOTE | 2019-09-03 11:16 | DI.CT.S_ITS ---
PROCEDURE: CT ABDOMEN PELVIS W CON INDICATIONS: breast cancer, abnormal CT liver/pancr TECHNIQUE: After the administration of oral and intravenous contrast, 5 mm thick sections acquired from the diaphragms to the symphysis. 5 mm thick coronal and sagittal reformats were performed. For radiation dose reduction, the following was used: automated exposure control, adjustment of mA and/or kV according to patient size. COMPARISON: [facility], CT, CT ABDOMEN PELVIS WO [facility], 08/23/2019, 9:11. FINDINGS: Image quality: Excellent. ABDOMEN: Lung bases: Lung bases are clear. Heart size is normal. Status post left mastectomy Solid organs: Diffuse hepatic steatosis. No definite focal hepatic lesion to suggest metastatic disease Gallbladder contracted otherwise unremarkable. Biliary system is non-dilated. Mildly focal hypodense appearance measuring 1.5 cm at the head of the pancreas on image 24-25 series 2 however this is nonspecific. If there is sufficient clinical suspicion, pancreatic protocol MRI could be performed Spleen is normal in size and enhancement. No adrenal nodules. Kidneys are normal in size and enhancement, without hydronephrosis. Peritoneum and bowel: Stomach, small bowel, and colon loops are normal in caliber and wall thickness. No free fluid or air. Nodes and vessels: No retroperitoneal or mesenteric adenopathy. Aorta and inferior vena cava are normal in caliber. Miscellaneous: No ventral hernias. PELVIS: Genitourinary: Bladder wall thickness is normal. Miscellaneous: No inguinal hernias or adenopathy. Bones: No suspicious bony lesions. No vertebral body compression fractures. IMPRESSION: Overall, no specific evidence of active metastatic disease. No focal hepatic lesion identified. Diffuse hepatic steatosis. Mild focal hypodense region involving the head of the pancreas, technically non-specific. Please correlate with pancreatic enzymes. If there is sufficient clinical suspicion for neoplasm, this could be further assessed with dedicated contrast-enhanced pancreatic protocol MRI (versus continued surveillance with CT) Dictated by: Og Dale M.D. on 09/03/2019 at 13:29 Approved by: Og Dale M.D. on 09/03/2019 at 14:02
== END ==
PROVIDERS: Family Provider Urology; Visit Provider Internal Medicine Hematology & Oncology
DX: C50.812 Malignant neoplasm of overlapping sites of left female breast (principal); C50.412 Malignant neoplasm of upper-outer quadrant of left female breast; K76.0 Fatty (change of) liver, not elsewhere classified; Z17.0 Estrogen receptor positive status [ER+]; Z90.12 Acquired absence of left breast and nipple
CPT/HCPCS: 74177; Q9967

== ENCOUNTER 2019-09-13 17:27 | Emergency (ER) | payer OTHER, SELFPAY ==
[2019-09-13 17:42] VITALS: BP 147/94; PULSE 78; RESP 20; TEMP 36.4; O2SAT 99
--- NOTE | 2019-09-13 17:47 | DI.RAD.S_ITS ---
PROCEDURE: XR CHEST 2V INDICATIONS: chest pain TECHNIQUE: 2 views of the chest were acquired. COMPARISON: [facility], CT, CT ABDOMEN PELVIS W CON, 09/03/2019, 11:49. [facility], CR, XR CHEST 1V, 06/17/2019, 14:01. FINDINGS: Surgical changes and devices: Right-sided port with the catheter tip in the upper third of the SVC. Surgical clips overlying the left chest wall. Lungs and pleura: Lungs are clear. No pleural effusions or pneumothorax. Mediastinum: Mediastinal contours are normal. Heart size is normal. Bones and chest wall: No suspicious bony abnormalities. Soft tissues appear unremarkable. IMPRESSION: No acute cardiopulmonary abnormality. Dictated by: Buster Simon M.D. on 09/13/2019 at 18:40 Approved by: Buster Simon M.D. on 09/13/2019 at 18:41
[2019-09-13 18:19] LABS: Add Manual Diff / Slide Review NO; Basophils Absolute Auto 0 /uL (0-100); Eosinophils Absolute Auto 100 /uL (0-450); Eosinophils Percent Auto 2.9 % (2-4); Hematocrit 31.9 % (36-46); Hemoglobin 10.7 g/dL (12.0-16.0); Lymphocytes Absolute Auto 1200 /uL (1100-4500); Lymphocytes Percent Auto 36.4 % (25-40); Mean Corpuscular HGB Conc 33.7 % (30-36); Mean Corpuscular Hemoglobin 32.2 PG (26-34); Mean Corpuscular Volume 95.5 fL (80-100); Monocytes Absolute Auto 100 /uL (0-900); Neutrophils Absolute Auto 1900 /uL (1500-7000); Neutrophils Percent Auto 56.7 % (50-75); Platelet Count 299 X10^3/uL (150-400); Red Blood Cell Count 3.34 X10^6/uL (4.0-5.2); Red Cell Distribution Width 16.1 % (11.6-14.8); White Blood Cell Count 3.4 X10^3/uL (4.5-11.0)
[2019-09-13 18:25] LABS: HEMOLYSIS < 15 (0-50)
[2019-09-13 18:31] LABS: Alanine Aminotransferase 24 IU/L (<35); Albumin 4.1 g/dL (3.5-5.0); Albumin Globulin Ratio 1.5 (1.0-2.8); Alkaline Phosphatase 97 U/L (38-126); Aspartate Aminotransferase 28 IU/L (14-36); Bilirubin Total 0.3 mg/dL (0.2-1.3); Blood Urea Nitrogen 10 mg/dL (7-17); Calcium 9.4 mg/dL (8.4-10.2); Carbon Dioxide 27 mmol/L (22-32); Chloride 100 mmol/L (98-107); Estimated Glomerular Filt Rate > 60.0 mL/min (>60); Globulin 2.7 g/dL (1.7-4.1); Glucose 98 mg/dL (70-100); Sodium 136 mmol/L (137-145); Total Protein 6.8 g/dL (6.3-8.2)
[2019-09-13 18:44] LABS: Troponin I < 0.012 ng/mL (0.01-0.034)
--- NOTE | 2019-09-13 20:07 | ED_ITS ---
HPI - Chest Pain General Chief Complaint: Chest Pain Stated Complaint: chemo patient, chest pains Time Seen by Provider: 09/13/19 20:07 Source: patient and old records reviewed Mode of arrival: Ambulatory Limitations: no limitations History of Present Illness HPI narrative: This is a 39-year-old female who comes in for complaint of chest pain started at 5:00 a.m. this morning. Patient complains of left upper pain that then started radiating more substernally. She states intermittent. Nothing seems to exacerbate or improve it. Patient states she did feel clammy yesterday at her back. She denies any cough, she denies any shortness of breath. No fevers or chills. Patient has had nausea but states that is normal for her. She has had some mild constipation but having bowel movements with no changes with urination. No swelling in her arms or legs. She is just finished with chemo 5 days ago for breast cancer. and is on Herceptin for her breast cancer. She had a left mastectomy and a single lymph node resection. She does take medication for hypertension which he started during her chemotherapy tr eatment. She is supposed to have a repeat echo next week and had 1 on June 20 secondary to her chemotherapy agents. She does not have any other medical history. Patient denies any other surgical history. Denies any allergies other than a sensitivity to NSAIDs. No tobacco, alcohol or illicit. No cardiac, pulmonary embolic family history. Related Data Home Medications Medication Instructions Recorded Confirmed solifenacin [Vesicare] 10 mg PO DAILY 04/08/19 08/19/19 losartan 50 mg PO DAILY 07/29/19 08/19/19 Previous Rx's Medication Instructions Recorded hydrocodone-acetaminophen [Lyle] 1 tab PO Q4H PRN #10 tab 06/17/19 ondansetron 4 mg PO Q6H PRN #30 tab 06/24/19 lorazepam 1 mg PO BEDTIME PRN #10 tab 07/29/19 ciprofloxacin HCl 500 mg PO BID #14 tab 08/06/19 lorazepam [Ativan] 0.5 mg PO Q6H PRN #30 tab 08/19/19 gabapentin 400 mg PO TID #90 cap 08/26/19 Allergies Allergy/AdvReac Type Severity Reaction Status Date / Time ibuprofen AdvReac Mild Nausea Verified 07/08/19 15:06 Review of Systems Review of Systems ROS Unobtainable: All systems reviewed & are unremarkable except as noted in HPI and below Patient History Medical History Breast cancer (Acute) Former smoker (Acute) History of UTI (Acute) Prolactinoma (Acute) Urinary frequency (Acute) Surgical History H/O left mastectomy (Acute 04/03/19) Social History household members: spouse Smoking Status: Never smoker alcohol intake: never substance use type: marijuana Smoking Status: Never smoker alcohol intake frequency: 0-2 drinks per day Substance Use Type: does not use Exam Narrative Exam Narrative: GENERAL: Alert and oriented x three, thin, female in mild distress HEENT: Head normocephalic, atraumatic, EOMI, pupils reactive, face symmetric, moist mucous membranes NECK: Supple, full range of motion CARDIOVASCULAR: Regular rate and rhythm without murmurs, rubs or gallops. RESPIRATORY: Breath sounds equal bilaterally, no wheezes rales or rhonchi. ABDOMEN: Soft, nontender. Normoactive bowel sounds all 4 quadrants. No guarding or rebound, rigidity, no mass : No CVA tenderness EXTREMITIES: Normal range of motion, no clubbing or edema. Neurovascularly intact NEUROLOGICAL: Cranial nerves II through XII grossly intact. Moving all extremities SKIN: Warm, dry, no petechiae, no rashes or lesions. Initial Vital Signs Initial Vital Signs: Vital Signs Temperature 97.6 F 09/13/19 17:42 Pulse Rate 78 09/13/19 17:42 Respiratory Rate 20 09/13/19 17:42 Blood Pressure 147/94 H 09/13/19 17:42 Pulse Oximetry 99 09/13/19 17:42 Scores HEART Score Heart Score history: Slightly Suspicious Heart Score EKG: Normal Heart Score Age: < 45 years old Heart Score risk factors: No known risk factors Heart Score troponin: < or = to normal limit Heart Score Total: 0 Course Orders Ordered: ED Orders 09/13/19 17:47 XR chest 2V Stat EKG-12 Lead Stat 09/13/19 18:10 Complete Blood Count AUTO DIFF Stat Comprehensive Metabolic Panel Stat Lipase Stat Troponin I Stat 09/13/19 20:22 CT angio chest PE protocol Stat Discontinued Medications Sodium Chloride (Normal Saline 0.9%) 1,000 mls @ 1,000 mls/hr IV BOLUS ONE Stop: 09/13/19 21:21 Last Admin: 09/13/19 21:41 Dose: 1,000 mls/hr Documented by: KEYLA Lidocaine/Sodium Bicarbonate (Buffered Lidocaine 10 Ml Syr) 10 ml INJ NOW ONE Stop: 09/13/19 20:26 Last Admin: 09/13/19 21:16 Dose: 10 ml Documented by: JACQUELYN Vital Signs Vital signs: Vital Signs - 8 hr 09/13/19 17:42 09/13/19 22:32 Temperature 97.6 F Pulse Rate 78 69 Respiratory Rate 20 18 Blood Pressure 147/94 H 117/46 L Pulse Oximetry 99 99 MDM - Chest Pain Lab Data Attestation: I reviewed the patient's lab results. Result diagrams: 09/13/19 18:10 09/13/19 18:10 Labs: Lab Results 09/13/19 09/13/19 09/13/19 Range/Units 18:10 18:10 18:10 WBC 3.4 L (4.5-11.0) X10^3/uL RBC 3.34 L (4.0-5.2) X10^6/uL Hgb 10.7 L (12.0-16.0) g/dL Hct 31.9 L (36-46) % MCV 95.5 (80-100) fL MCH 32.2 (26-34) PG MCHC 33.7 (30-36) % RDW 16.1 H (11.6-14.8) % Plt Count 299 (150-400) X10^3/uL Neut % (Auto) 56.7 (50-75) % Lymph % (Auto) 36.4 (25-40) % [place] % (Auto) 3.0 (3-14) % Eos % (Auto) 2.9 (2-4) % Baso % (Auto) 1.0 (0-2) % Neut # (Auto) 1900 (5960-1158) /uL Lymph # (Auto) 1200 (1059-8894) /uL [place] # (Auto) 100 (0-900) /uL Eos # (Auto) 100 (0-450) /uL Baso # (Auto) 0 (0-100) /uL Sodium 136 L (137-145) mmol/L Potassium 4.0 (3.4-5.1) mmol/L Chloride 100 (98-107) mmol/L Carbon Dioxide 27 (22-32) mmol/L BUN 10 (7-17) mg/dL Creatinine 0.50 L (0.52-1.04) mg/dL Estimated GFR > 60.0 (>60) mL/min BUN/Creatinine Ratio 20.0 (6-22) Glucose 98 (70-100) mg/dL Calcium 9.4 (8.4-10.2) mg/dL Total Bilirubin 0.3 (0.2-1.3) mg/dL AST 28 (14-36) IU/L ALT 24 (<35) IU/L Alkaline Phosphatase 97 (38-126) U/L Troponin I < 0.012 (0.01-0.034) ng/mL Total Protein 6.8 (6.3-8.2) g/dL Albumin 4.1 (3.5-5.0) g/dL Globulin 2.7 (1.7-4.1) g/dL Albumin/Globulin Ratio 1.5 (1.0-2.8) Lipase 57 (23-300) U/L Imaging Data Chest x-ray: Radiologist's Impression: [address] [address] XRay Report Signed Patient: Laura Naik GMR#: [id number] : 1980Acct:[id number] Age/Sex: 39 / FDate of Service: 09/13/19 Loc: ED Accession Number: [id number] Procedure: XR chest 2V Ordering Provider: Tyrone Arambula MD PROCEDURE: XR CHEST 2V INDICATIONS: chest pain TECHNIQUE: 2 views of the chest were acquired. COMPARISON: [facility], CT, CT ABDOMEN PELVIS W CON, 09/03/2019, 11:49. [facility], CR, XR CHEST 1V, 06/17/2019, 14:01. FINDINGS: Surgical changes and devices: Right-sided port with the catheter tip in the upper third of the SVC. Surgical clips overlying the left chest wall. Lungs and pleura: Lungs are clear. No pleural effusions or pneumothorax. Mediastinum: Mediastinal contours are normal. Heart size is normal. Bones and chest wall: No suspicious bony abnormalities. Soft tissues appear unremarkable. IMPRESSION: No acute cardiopulmonary abnormality. Dictated by: Buster Simon M.D. on 09/13/2019 at 18:40 Approved by: Buster Simon M.D. on 09/13/2019 at 18:41 CT scan - chest: Radiologist's Impression: Laura Naik 39 F 1980 [place] [address] CT Scan Report Signed Patient: Laura Naik GMR#: [id number] : 1980Acct:[id number] Age/Sex: 39 / FDate of Service: 09/13/19 Loc: ED Accession Number: [id number] Procedure: CT angio chest PE protocol Ordering Provider: Mei Eagle D.O. PROCEDURE: CT ANGIO CHEST PE PROTOCOL INDICATIONS: chest pain, just finished chemo for breast ca TECHNIQUE: After the administration of intravenous contrast, 2 mm thick sections acquired from the pulmonary apices to the posterior costophrenic angles. 3-dimensional maximum intensity projection (MIP) coronal and sagittal reformats were then acquired through the thorax. For radiation dose reduction, the following was used: automated exposure control, adjustment of mA and/or kV according to patient size. COMPARISON: None. FINDINGS: Image quality: Fair. Delay in contrast bolus timing. Pulmonary arteries: Pulmonary arteries are normal in size, and demonstrate no intraluminal filling defects to suggest central pulmonary embolism. Lungs and pleura: No acute airspace opacity. A few tiny pulmonary nodules. For example: 3 mm nodule in the left upper lobe, (5/128). No pleural effusions or pneumothorax. Central and peripheral airways are patent. Small right tracheocele. Mediastinum: Heart size is normal, without pericardial effusion. No mediastinal or hilar adenopathy. Thoracic aorta is normal in caliber and enhancement. Esophagus is normal in caliber, without hiatal hernia. Bones and chest wall: Left mastectomy. Right-sided port with the catheter tip terminating in the lower third of the SVC. No suspicious bony lesions. Ribs and thoracic spine appear intact throughout. Thyroid gland is unremarkable. No axillary or supraclavicular adenopathy. Abdomen: Visualized upper abdominal solid organs appear normal in the early arterial phase of enhancement. IMPRESSION: Exam is limited by contrast bolus timing. No central pulmonary embolism. No acute airspace opacity. Small 3 mm pulmonary nodule in the left lobe seen. Prior left mastectomy. Dictated by: Buster Simon M.D. on 09/13/2019 at 21:35 Approved by: Buster Simon M.D. on 09/13/2019 at 21:42 ECG Data Attestation: I personally reviewed and interpreted this ECG as follows: Prior ECG tracings: not available for review Interpretation: Sinus rhythm, with sinus arrhythmia. rate of 75, pr 131, qrs of 91, qtc 399. No ST elevation or depression. No priors available. MDM Narrative Medical decision making narrative: Patient comes in with complaint of chest pain, troponin is negative. Patient troponin is than 12 hours after initial onset of chest pain and is negative. With no EKG changes. Discussed with patient her symptoms are not consistent with a typical PE but she does have significant risk factors and elected to get angiography to evaluate. Patient's echo was reviewed from 06/20/2019. EF was 60-65% with no focal wall motion abnormalities. Normal structure. With trace tricuspid regurg. No pericardial effusion or pleural effusion at that time. CT is negative small 3 mm pulmonary nodule in the left lobe. Discussed findings with patient, plan for follow up with her oncologist and for repeat ECHO this coming week. Discharge Plan Departure Patient Disposition: Home Clinical Impression: Atypical chest pain, Pulmonary nodule Discharge Date/Time: 09/13/19 22:32 Instructions: DI for Atypical Chest Pain Activity Restrictions/Additional Instructions: Follow up with your oncologist this week. Call to schedule your ECHO this coming week. Return to ER for fevers greater 100.4 F, new or worsening chest pain, shortness of breath, syncope, persistent vomiting, lightheadedness, passing out, new swelling in her extremities, new rashes or skin changes or other new or concerning symptoms. Prescriptions: No Action ondansetron 4 mg Tablet,Disintegrating 4 mg PO Q6H PRN (Reason: Nausea And Vomiting) Qty: 30 RF: 2 losartan 50 mg Tablet 50 mg PO DAILY RF: 0 lorazepam 1 mg Tablet 1 mg PO BEDTIME PRN (Reason: Sleep) Qty: 10 RF: 0 ciprofloxacin HCl 500 mg Tablet 500 mg PO BID Qty: 14 RF: 0 lorazepam [Ativan] 0.5 mg Tablet 0.5 mg PO Q6H PRN (Reason: nausea, chemotherapy and anxie) Qty: 30 RF: 0 gabapentin 400 mg Capsule 400 mg PO TID Qty: 90 RF: 0 solifenacin [Vesicare] 10 mg Tablet 10 mg PO DAILY RF: 0 hydrocodone-acetaminophen [Lyle] 5-325 mg tablet 1 tab PO Q4H PRN (Reason: pain) Qty: 10 RF: 0
--- NOTE | 2019-09-13 20:22 | DI.CT.S_ITS ---
PROCEDURE: CT ANGIO CHEST PE PROTOCOL INDICATIONS: chest pain, just finished chemo for breast ca TECHNIQUE: After the administration of intravenous contrast, 2 mm thick sections acquired from the pulmonary apices to the posterior costophrenic angles. 3-dimensional maximum intensity projection (MIP) coronal and sagittal reformats were then acquired through the thorax. For radiation dose reduction, the following was used: automated exposure control, adjustment of mA and/or kV according to patient size. COMPARISON: None. FINDINGS: Image quality: Fair. Delay in contrast bolus timing. Pulmonary arteries: Pulmonary arteries are normal in size, and demonstrate no intraluminal filling defects to suggest central pulmonary embolism. Lungs and pleura: No acute airspace opacity. A few tiny pulmonary nodules. For example: 3 mm nodule in the left upper lobe, (5/128). No pleural effusions or pneumothorax. Central and peripheral airways are patent. Small right tracheocele. Mediastinum: Heart size is normal, without pericardial effusion. No mediastinal or hilar adenopathy. Thoracic aorta is normal in caliber and enhancement. Esophagus is normal in caliber, without hiatal hernia. Bones and chest wall: Left mastectomy. Right-sided port with the catheter tip terminating in the lower third of the SVC. No suspicious bony lesions. Ribs and thoracic spine appear intact throughout. Thyroid gland is unremarkable. No axillary or supraclavicular adenopathy. Abdomen: Visualized upper abdominal solid organs appear normal in the early arterial phase of enhancement. IMPRESSION: Exam is limited by contrast bolus timing. No central pulmonary embolism. No acute airspace opacity. Small 3 mm pulmonary nodule in the left lobe seen. Prior left mastectomy. Dictated by: Buster Simon M.D. on 09/13/2019 at 21:35 Approved by: Buster Simon M.D. on 09/13/2019 at 21:42
[2019-09-13 20:39] LABS: Lipase 57 U/L (23-300)
[2019-09-13] MEDS: LIDO 1%/SOD BICARB 8.4% (10ML) 10 ML SYRINGE INJ (21:16)
[2019-09-13] MEDS: SODIUM CHLORIDE 0.9% 1,000 ML 1000 ML IV (21:41)
[2019-09-13 22:32] VITALS: BP 117/46; PULSE 69; RESP 18; O2SAT 99
== END 2019-09-13 22:32 | disposition home or self-care (01) ==
PROVIDERS: Emergency Medicine; Emergency Provider Emergency Medicine; Family Provider Urology
DX: R07.89 Other chest pain (principal); R91.1 Solitary pulmonary nodule; C50.919 Malignant neoplasm of unspecified site of unspecified female breast
CPT/HCPCS: 36415; 71046; 71275; 80053; 83690; 84484; 85025; 93005; 99284; 99285; J1642; Q9967

== ENCOUNTER → 2019-09-20 13:04 | Outpatient (CLI) | payer OTHER, SELFPAY ==
--- NOTE | 2019-09-20 13:05 | DI.MRI.S_ITS ---
PROCEDURE: MR ABDOMEN PELVIS O CON INDICATIONS: pancreatic lesion, history of breast cancer TECHNIQUE: Coronal HASTE, axial 2D FLASH in- and [id number]; axial breath-hold T2 FSE; dynamic axial VIBE during IV gadolinium administration; postgadolinium coronal VIBE or 2D FLASH with fat saturation from the hepatic dome to the iliac crests. COMPARISON: [facility], CT, CT ABDOMEN PELVIS WO CON, 08/23/2019, 9:11. [facility], CT, CT ANGIO CHEST PE PROTOCOL, 09/13/2019, 20:43. [facility], CT, CT ABDOMEN PELVIS W CON, 09/03/2019, 11:49. FINDINGS: Image quality: There is mild motion artifact. Lung bases: No basal pleural effusion. Heart is normal in size. Solid organs: There is mild heterogeneous signal drop out on out of phase imaging in the liver consistent with fatty infiltration. Gallbladder appears within normal limits without gallstones. No biliary ductal dilatation. Spleen is normal in size. No adrenal nodules. Kidneys demonstrate no hydronephrosis. No discrete enhancing pancreatic mass identified. There is a small oval lesion within the pancreatic head measuring up to 0.9 x 0.5 cm in transverse dimension which follows fat signal intensity suggestive of a focus of interdigitating fat. No pancreatic or biliary ductal dilatation. No pericardiac edema or fluid collections. Nodes and vessels: No evidence of mesenteric or retroperitoneal lymphadenopathy by size criteria. The aorta is normal in caliber. Bowel and peritoneum: Visualized bowel loops are normal in caliber. No intraperitoneal free fluid. Pelvis: Bladder demonstrates normal wall thickness. The uterus and ovaries appear within normal size limits. Bones and soft tissues: Visualized osseous structures demonstrate no suspicious focal lesions. There is a small enhancing intramuscular mass lesion within the right posterior paraspinous muscles at the level of L5 measuring up to 1.3 x 1.3 x 1.8 cm. This demonstrates T1 hypointensity and T2 hyperintensity. IMPRESSION: 1. No discrete enhancing pancreatic mass identified. No secondary evidence of mass effect such as biliary or pancreatic duct dilatation. 2. Small oval lesion within the pancreatic head appears to follow fat signal intensity and corresponds to a fat density lesion on the prior CT studies. The findings likely represent a focus of interdigitating fat. 3. Small enhancing intramuscular mass within the right paraspinous musculature at the level of L5. The finding is nonspecific but suspicious for metastatic disease. Dictated by: Jean Nguyễn M.D. on 09/20/2019 at 17:43 Approved by: Jean Nguyễn M.D. on 09/20/2019 at 17:57
== END ==
PROVIDERS: Family Provider Urology; Referring Provider Internal Medicine Hematology & Oncology; Visit Provider Internal Medicine Hematology & Oncology
DX: C50.412 Malignant neoplasm of upper-outer quadrant of left female breast (principal); C50.812 Malignant neoplasm of overlapping sites of left female breast; K86.9 Disease of pancreas, unspecified; M62.9 Disorder of muscle, unspecified
CPT/HCPCS: 72197

== ENCOUNTER → 2019-10-01 06:50 | Outpatient (CLI) | payer OTHER, SELFPAY ==
--- NOTE | 2019-10-01 06:51 | DI.ECHO.S_ITS ---
[facility]---------+ [facility] +---------+ : : [address] : : : : [id number] : : : : Phone: [phone]+ Echocardiogram Report + + :Name: SYLVIA BOWLES Study Date: 10/01/2019 Height: 60 in : :[facility] Weight: 127 lb : : Gender: Female BSA: 1.5 m2 : :: 1980 Age: 39 yrs BP: 118/70 mmHg: :Reason For Study: HERCEPTIN : : Performed By: Soco Chavis : :Referring: KARLA ROWLAND : + + Interpretation Summary The ejection fraction is estimated to be 60-65%. Current global longitudinal peak systolic average strain of -21.7% There is no significant valvular heart disease. Procedure: A two-dimensional transthoracic echocardiogram with color flow and Doppler was performed. The study quality was technically adequate. Comparison is made with the echocardiogram of 06/20/2019. The patient was in normal sinus rhythm during the exam. Left Ventricle: The left ventricle is normal in size and wall thickness. The ejection fraction is estimated to be 60-65%. Current global longitudinal peak systolic average strain of -21.7%. Diastolic parameters suggest probable normal left ventricular diastolic function and normal filling pressures. Right Ventricle: The right ventricle is normal in size and function. Atria: Both atria are normal in size. There is no Doppler evidence for an interatrial shunt. Mitral Valve: The mitral valve is normal in structure and function. There is trace mitral regurgitation. Aortic Valve: The aortic valve is trileaflet. The aortic valve opens well. There is no aortic valve stenosis. No aortic regurgitation is present. Tricuspid Valve: The tricuspid valve is normal in structure and function. There is trace tricuspid regurgitation. The right ventricular systolic pressure is estimated to be at least 18 mmHg based on an estimated right atrial pressure of 3 mm Hg. Pulmonic Valve: The pulmonic valve is normal in structure and function. There is mild pulmonic regurgitation. Great Vessels: The aortic root is normal size. The ascending aorta is normal in size. The aortic arch is normal in size. The IVC is of normal diameter and collapses greater than 50% with a sniff. This suggests a low right atrial pressure of 3 mm Hg. Pericardium/ Pleura There is no pericardial effusion. MMode/2D Measurements & Calculations LVIDd: 4.3 cm LVOT diam: 2.0 cm LVIDs: 3.1 cm Ao root diam: 2.5 cm FS: 28.0 % asc Aorta Diam: 3.0 cm EPSS: 0.55 cm Ao Arch Diam (Prox Trans): 2.4 cm IVSd: 0.72 cm LVPWd: 0.92 cm LV morris. diameter/BSA (cm/m^2): 2.8 LV sys. diameter/BSA (cm/m^2): 2.0 LA A2 area: 16.9 cm2 RA long axis: 3.8 cm LA A4 area: 14.4 cm2 RA area: 11.4 cm2 LA length (vol): 4.7 cm RA vol: 29.0 ml LA vol: 44.0 ml RA : 18.9 ml/m2 LA vol index: 28.6 ml/m2 IVC diam: 1.6 cm RVD1 (basal): 3.2 cm RVD2 (mid): 2.8 cm TAPSE: 2.5 cm Doppler Measurements & Calculations Ao V2 max: 125.9 cm/sec LVOT Max Soren: 88.5 cm/sec Ao V2 mean: 88.6 cm/sec LV V1 max P.1 mmHg Ao max P.3 mmHg LV V1 VTI: 19.4 cm Ao mean P.5 mmHg BARBI(I,D): 2.4 cm2 Ao V2 VTI: 25.4 cm BARBI(V,D): 2.2 cm2 sev ratio: 0.76 BARBI indexed to BSA (cm^2/m^2): 1.6 MV E max soren: 84.3 cm/sec TR max soren: 197.0 cm/sec MV A max soren: 58.9 cm/sec TR max P.6 mmHg MV E/A: 1.4 Med Peak E' Soren: 11.3 cm/sec E/E' med: 7.5 Lat Peak E' Soren: 14.5 cm/sec E/E' lat: 5.8 E/e' average: 6.6 MV dec time: 0.20 sec MV P1/2t: 58.6 msec MV P1/2t max soren: 84.4 cm/sec SV(LVOT): 61.1 ml MVA(P1/2t): 3.8 cm2 Reading Physician:09:53 AM
== END ==
PROVIDERS: Family Provider Urology; Referring Provider Internal Medicine Hematology & Oncology; Visit Provider Internal Medicine Hematology & Oncology
DX: I37.1 Nonrheumatic pulmonary valve insufficiency (principal); C50.812 Malignant neoplasm of overlapping sites of left female breast; C50.412 Malignant neoplasm of upper-outer quadrant of left female breast; Z92.21 Personal history of antineoplastic chemotherapy; Z17.0 Estrogen receptor positive status [ER+]
CPT/HCPCS: 93306

== ENCOUNTER → 2020-01-08 15:54 | Outpatient (CLI) | payer OTHER, SELFPAY ==
--- NOTE | 2020-01-08 15:55 | DI.ECHO.S_ITS ---
[facility]---------+ [facility] +---------+ : : [address] : : : : [id number] : : : : Phone: [phone]+ Echocardiogram Report + + :Name: SYLVIA BOWLES Study Date: 01/08/2020 Height: 60 in : :[facility] Weight: 130 lb : : Gender: Female BSA: 1.6 m2 : :: 1980 Age: 39 yrs BP: 122/82 mmHg: :Reason For Study: Breast Cancer, Herceptin : : Performed By: Soco Chavis : :Referring: KARLA ROWLAND : + + Interpretation Summary Left ventricular systolic function remains normal and unchanged with an estimated ejection fraction around 65% and a normal global longitudinal strain average of -22% without significant change from the previous study. Left ventricular size and diastolic function remains normal. The right ventricle is normal and unchanged. Right ventricular systolic pressure is estimated at 27 mmHg with a CVP of 3 mmHg. Both atria are normal in size and unchanged. There is no significant valvular abnormality. Procedure: A two-dimensional transthoracic echocardiogram with color flow and Doppler was performed. The study quality was technically adequate. Comparison is made with the echocardiogram of 10/01/2019. The patient was in normal sinus rhythm during the exam. The heart rate ranged between 63-70 bpm during the study. Left Ventricle: The left ventricle is normal in size, wall thickness, and systolic function without any focal wall motion abnormalities. The ejection fraction is estimated to be 60-65%. Left ventricular global longitudinal strain average is -22.2%. Previous global longitudinal strain average of - 21.7% on 10/01/2019/. Diastolic parameters suggest probable normal left ventricular diastolic function and normal filling pressures. There has been no significant change since the previous study. Right Ventricle: The right ventricle is normal in size and function. This is unchanged compared to the previous study. Atria: Both atria are normal in size. This is unchanged compared to the previous study. The interatrial septum is intact with no evidence for an atrial septal defect. Mitral Valve: The mitral valve is normal in structure and function. There is trace mitral regurgitation. Aortic Valve: The aortic valve is normal in structure and function. The aortic valve is trileaflet. The aortic valve opens well. There is no aortic valve stenosis. No aortic regurgitation is present. Tricuspid Valve: The tricuspid valve is normal in structure and function. There is a trace or physiologic amount of tricuspid regurgitation. The right ventricular systolic pressure is estimated to be at least 27 mmHg based on an estimated right atrial pressure of 3 mm Hg. Pulmonic Valve: The pulmonic valve is normal in structure and function. There is trace pulmonic regurgitation. There is no significant valvular heart disease. Great Vessels: The aortic root is normal size. The ascending aorta is normal in size. The IVC is of normal diameter and collapses greater than 50% with a sniff. This suggests a low right atrial pressure of 3 mm Hg. Pericardium/ Pleura There is no pericardial effusion. There is no pleural effusion. MMode/2D Measurements & Calculations LVIDd: 4.3 cm LVOT diam: 2.0 cm LVIDs: 2.6 cm Ao root diam: 2.5 cm FS: 38.5 % asc Aorta Diam: 2.9 cm EPSS: 1.3 cm Ao Arch Diam (Prox Trans): 2.7 cm IVSd: 0.74 cm LVPWd: 0.66 cm LV morris. diameter/BSA (cm/m^2): 2.8 LV sys. diameter/BSA (cm/m^2): 1.7 LA A2 area: 20.0 cm2 RA long axis: 3.9 cm LA A4 area: 13.9 cm2 RA area: 11.8 cm2 LA length (vol): 4.5 cm RA vol: 29.9 ml LA vol: 52.7 ml RA : 19.2 ml/m2 LA vol index: 33.9 ml/m2 IVC diam: 1.9 cm RVD1 (basal): 3.2 cm TAPSE: 2.1 cm Doppler Measurements & Calculations Ao V2 max: 135.4 cm/sec LVOT Max Soren: 99.0 cm/sec Ao V2 mean: 87.1 cm/sec LV V1 max P.9 mmHg Ao max P.3 mmHg LV V1 VTI: 24.0 cm Ao mean P.7 mmHg BARBI(I,D): 2.6 cm2 Ao V2 VTI: 28.4 cm BARBI(V,D): 2.2 cm2 sev ratio: 0.85 BARBI indexed to BSA (cm^2/m^2): 1.7 MV E max soren: 87.5 cm/sec TR max soren: 243.2 cm/sec MV A max soren: 71.0 cm/sec TR max P.7 mmHg MV E/A: 1.2 PA V2 max: 75.7 cm/sec Med Peak E' Soren: 11.8 cm/sec PA V2 mean: 47.9 cm/sec E/E' med: 7.4 PA mean P.1 mmHg Lat Peak E' Soren: 15.7 cm/sec NIRMALA pr(Accel): -3.2 mmHg E/E' lat: 5.6 E/e' average: 6.5 MV dec time: 0.14 sec SV(LVOT): 73.6 ml Reading Physician:CORNELIA
== END ==
PROVIDERS: Family Provider Urology; Referring Provider Internal Medicine Hematology & Oncology; Visit Provider Internal Medicine Hematology & Oncology
DX: C50.812 Malignant neoplasm of overlapping sites of left female breast (principal); C50.412 Malignant neoplasm of upper-outer quadrant of left female breast; Z79.899 Other long term (current) drug therapy
CPT/HCPCS: 93306

== ENCOUNTER → 2020-02-13 06:42 | Outpatient (CLI) | payer OTHER, SELFPAY ==
--- NOTE | 2020-02-13 06:44 | DI.MRI.S_ITS ---
PROCEDURE: MR HEAD/BRAIN WO/W CON INDICATIONS: am headaches, right sided weakness, her2+ breast cancer TECHNIQUE: Noncontrast axial T1 spin echo, axial T2 fast spin echo, sagittal and axial FLAIR, coronal T2 fast spin echo, axial gradient echo, axial diffusion and ADC through the brain. After the administration of contrast, axial and coronal 3D VIBE or T1 spin echo with fat saturation through the brain. COMPARISON: None. FINDINGS: Image quality: Excellent. CSF Spaces: Basal cisterns are patent. No extra-axial fluid collections. Ventricles are normal in size and shape. Brain: No midline shift. No intracranial bleeds or masses. No abnormal intracranial enhancement. The brainstem appears normal. Diffusion-weighted images demonstrate no acute ischemic insults. No areas of encephalomalacia. Single 6 mm focus of hyperintense T2 signal noted in the posterior right frontal subcortical white matter. No local mass effect or vasogenic edema are associated with the signal abnormality in the right frontal lobe. No postcontrast enhancement is associated with the right frontal lesion. No susceptibility artifact associated with the right frontal region. Normal intravascular flow voids are present. Dural sinuses demonstrate normal postcontrast enhancement. Skull and face: Calvarial marrow is normal in signal. Orbits appear normal. Sinuses: Sinuses and mastoids appear clear. IMPRESSION: 1. Single focus of abnormal T2 signal in the posterior right frontal subcortical white matter without associated postcontrast enhancement or mass effect. Lesion is nonspecific and may represent early manifestation of chronic microvascular ischemic change, early manifestation of a demyelinating process, solitary hamartoma, subacute infarct of greater than 2 weeks of age or less likely low-grade neoplastic process. Recommend repeat MRI of the brain in 3 months to confirm stability of the finding. 2. Otherwise, normal MRI of the brain. Dictated by: Madelyn Moses MD, PhD on 02/13/2020 at 10:56 Approved by: Madelyn Moses MD, PhD on 02/13/2020 at 11:24
== END ==
PROVIDERS: Family Provider Urology; Referring Provider Internal Medicine; Visit Provider Internal Medicine
DX: R51 Headache (principal); R29.898 Other symptoms and signs involving the musculoskeletal system; C50.812 Malignant neoplasm of overlapping sites of left female breast; C50.412 Malignant neoplasm of upper-outer quadrant of left female breast; Z17.0 Estrogen receptor positive status [ER+]
CPT/HCPCS: 70553; A9579

== ENCOUNTER → 2020-04-02 06:54 | Outpatient (CLI) | payer OTHER, SELFPAY ==
--- NOTE | 2020-04-02 06:56 | DI.ECHO.S_ITS ---
[place] [facility]---------+ [facility] +---------+ : : [address] : : : : [id number] : : : : Phone: [phone] Echocardiogram Report + + :Name: SYLVIA BOWLES Study Date: 04/02/2020 Height: 60 in : :[facility] Weight: 129 lb : : Gender: Female BSA: 1.5 m2 : :: 1980 Age: 39 yrs BP: 148/97 mmHg: :Reason For Study: Monitoring of trastuzumab therapy : : Performed By: Soco Chavis : :Referring: RON SHEIKH : + + Interpretation Summary The left ventricle is normal in size and wall thickness. Left ventricular systolic function is normal without focal wall motion abnormalities. The ejection fraction is estimated to be 60-65%. Left ventricular global longitudinal strain average is 20.7%. Prior GLS average was -22%. Diastolic parameters suggest probable normal left ventricular diastolic function and normal filling pressures. The right ventricle is normal in size and function. Both atria are normal in size. There is no significant valvular heart disease. The aortic root is normal size. Procedure: A two-dimensional transthoracic echocardiogram with color flow and Doppler was performed. The study quality was technically adequate. Comparison is made with the echocardiogram of 01/08/2020. The patient was in sinus rhythm with heart rates between 59-70 bpm during the exam. Left Ventricle: The left ventricle is normal in size and wall thickness. Left ventricular systolic function is normal without focal wall motion abnormalities. The ejection fraction is estimated to be 60-65%. Left ventricular global longitudinal strain average is 20.7%. Diastolic parameters suggest probable normal left ventricular diastolic function and normal filling pressures. Right Ventricle: The right ventricle is normal in size and function. Atria: Both atria are normal in size. There is no Doppler evidence for an interatrial shunt. Mitral Valve: The mitral valve is normal in structure and function. There is trace mitral regurgitation. Aortic Valve: The aortic valve is trileaflet. The aortic valve opens well. There is no aortic valve stenosis. No aortic regurgitation is present. Tricuspid Valve: The tricuspid valve is normal in structure and function. There is a trace or physiologic amount of tricuspid regurgitation. Pulmonic Valve: The pulmonic valve leaflets are thin and pliable; valve motion is normal. There is no pulmonic valvular regurgitation. There is no significant valvular heart disease. Great Vessels: The aortic root is normal size. The ascending aorta is normal in size. The IVC is dilated (diameter is greater than 2.1 cm) yet it collapses greater than 50% with a sniff. This suggests a right atrial pressure of 8 mm Hg. Pericardium/ Pleura There is no pericardial effusion. There is no pleural effusion. MMode/2D Measurements & Calculations LVIDd: 4.6 cm LVOT diam: 2.0 cm LVIDs: 3.1 cm Ao root diam: 2.6 cm FS: 33.4 % asc Aorta Diam: 2.8 cm EPSS: 0.54 cm Ao Arch Diam (Prox Trans): 2.3 cm IVSd: 0.67 cm LVPWd: 0.66 cm LV morris. diameter/BSA (cm/m^2): 3.0 LV sys. diameter/BSA (cm/m^2): 2.0 LA A2 area: 15.0 cm2 RA long axis: 4.2 cm LA A4 area: 15.6 cm2 RA area: 11.2 cm2 LA length (vol): 4.7 cm RA vol: 25.8 ml LA vol: 42.0 ml RA : 16.6 ml/m2 LA vol index: 27.1 ml/m2 IVC diam: 2.2 cm RVD1 (basal): 3.0 cm TAPSE: 2.0 cm Doppler Measurements & Calculations Ao V2 max: 125.4 cm/sec LVOT Max Soren: 91.3 cm/sec Ao V2 mean: 85.6 cm/sec LV V1 max P.3 mmHg Ao max P.3 mmHg LV V1 VTI: 19.5 cm Ao mean P.3 mmHg BARBI(I,D): 2.0 cm2 Ao V2 VTI: 29.7 cm BARBI(V,D): 2.2 cm2 sev ratio: 0.66 BARBI indexed to BSA (cm^2/m^2): 1.3 MV E max soren: 88.9 cm/sec PA V2 max: 72.5 cm/sec MV A max soren: 65.6 cm/sec PA V2 mean: 47.8 cm/sec MV E/A: 1.4 PA mean P.1 mmHg Med Peak E' Soren: 9.9 cm/sec PA pr(Accel): 13.9 mmHg E/E' med: 9.0 Lat Peak E' Sroen: 14.6 cm/sec E/E' lat: 6.1 E/e' average: 7.5 MV dec time: 0.16 sec SV(LVOT): 59.9 ml Reading Physician:02:13 PM
== END ==
PROVIDERS: Family Provider Urology; Referring Provider Internal Medicine; Visit Provider Internal Medicine
DX: Z92.21 Personal history of antineoplastic chemotherapy; C50.812 Malignant neoplasm of overlapping sites of left female breast; C50.412 Malignant neoplasm of upper-outer quadrant of left female breast; Z17.0 Estrogen receptor positive status [ER+]
CPT/HCPCS: 93306

== ENCOUNTER → 2020-05-20 11:01 | Outpatient (CLI) | payer OTHER, SELFPAY ==
--- NOTE | 2020-05-20 11:05 | DI.MG.S_ITS ---
UNILATERAL RIGHT DIGITAL SCREENING MAMMOGRAM 3D/2D WITH CAD POST MASTECTOMY: 05/20/2020 CLINICAL: Routine screening. Personal history of left breast cancer. Comparison is made to exams dated: 03/15/2019 mammogram, 02/28/2019 mammogram, and 02/18/2019 mammogram - [facility]. The tissue of right breast is heterogeneously dense. This may lower the sensitivity of mammography. Current study was also evaluated with a Computer Aided Detection (CAD) system. No significant masses, calcifications, or other findings are seen in the breast. There has been no significant interval change. IMPRESSION: NEGATIVE There is no mammographic evidence of malignancy. A 1 year screening mammogram is recommended. This exam was interpreted at Station ID: [id number]. NOTE: For mammograms, a report in lay terms will be sent to the patient. Approximately 15% of breast malignancies will not be visualized mammographically. In the management of a palpable breast mass, a negative mammogram must not discourage biopsy of a clinically suspicious lesion. Electronically Signed By: Juan Vazquez M.D., jr/hakan:05/20/2020 12:49:06 copy to: Jo Casillas MD, [facility] letter sent: Normal Exam ACR BI-RADS Category 1: Negative [id number]
--- NOTE | 2020-05-20 11:05 | DI.MRI.S_ITS ---
PROCEDURE: MR HEAD/BRAIN WO/W CON INDICATIONS: Follow-up lesion on prior MRI, patient with breast cancer TECHNIQUE: Noncontrast axial T1 spin echo, axial T2 fast spin echo, sagittal and axial FLAIR, coronal T2 fast spin echo, axial gradient echo, axial diffusion and ADC through the brain. After the administration of contrast, axial and coronal 3D VIBE or T1 spin echo with fat saturation through the brain. COMPARISON: [facility], , MR HEAD/BRAIN WO/W CON, 02/13/2020, 7:35. FINDINGS: Image quality: Excellent. CSF Spaces: Basal cisterns are patent. No extra-axial fluid collections. Ventricles are normal in size and shape. Brain: No midline shift. No intracranial bleeds or masses. The 6 mm diameter unenhancing high FLAIR signal intensity focus within the right posterolateral frontal lobe involving the subcortical white matter is unchanged. No abnormal intracranial enhancement. The brainstem appears normal. Diffusion-weighted images demonstrate no acute ischemic insults. No chronic ischemic insults. Normal intravascular flow voids are present. Skull and face: Calvarial marrow is normal in signal. Orbits appear normal. Sinuses: Sinuses and mastoids appear clear. IMPRESSION: 1. Probably benign focus within the right frontal subcortical white matter, suggestive of early small vessel ischemic disease, demyelinating process, or hamartoma. Follow-up brain MRI with and without intravenous contrast in 6 months is recommended to confirm stability, and to exclude less likely, more aggressive etiologies such as low-grade neoplasm. 2. Otherwise negative examination. Dictated by: Sarahi Worrell M.D. on 05/20/2020 at 12:02 Approved by: Sarahi Worrell M.D. on 05/20/2020 at 12:05
== END ==
PROVIDERS: Family Provider Urology; Referring Provider Internal Medicine; Visit Provider Internal Medicine
DX: G93.9 Disorder of brain, unspecified (principal); Z12.31 Encounter for screening mammogram for malignant neoplasm of breast; C50.812 Malignant neoplasm of overlapping sites of left female breast; C50.412 Malignant neoplasm of upper-outer quadrant of left female breast; Z90.12 Acquired absence of left breast and nipple; Z17.0 Estrogen receptor positive status [ER+]
CPT/HCPCS: 70553; 77063; 77067

== ENCOUNTER → 2020-06-30 08:12 | Outpatient (CLI) | payer OTHER, SELFPAY ==
--- NOTE | 2020-06-30 08:13 | DI.ECHO.S_ITS ---
Version: 1 Study ID: [id number] [address] [place] [id number] Name: SYLVIA BOWLES Study Date: 06/30/2020, 8: 29 AM : 1980 BP: 148 / 97 mmHg Gender: Female Height: 60 in Age: 40 Years Weight: 128 lb BSA: 1.54 mA? Ordering: RON SHEIKH Referring: RON SHEIKH Clinician: Soco Chavis Reason For Study: HERCEPTIN THERAPY History: Summary Statements Normal sinus rhythm. Normal LV size, wall thickness, wall motion and LV systolic function. Global longtitudinal strain is -21.8% (normal). EF is estimated at 55-60%. Borderline LA enlargement; otherwise normal chamber sizes. No significant valvular abnormalities. Compared to prior study 04/02/2020 no changes have occurred. Procedure: A two-dimensional transthoracic echocardiogram with color flow and Doppler was performed. The study quality was technically adequate. Comparison is made with the echocardiogram of 04/02/2020. The patient was in sinus rhythm with heart rates between 58-76 bpm during the exam. Left Ventricle: Diastolic parameters suggest probable normal left ventricular diastolic function and normal filling pressures. Left ventricular global longitudinal strain average is -21.8%. Prior GLS average was -20.7%. The left ventricle is normal in size and wall thickness. Right Ventricle: The right ventricle is normal in size and function. Atria: There is no Doppler evidence for an interatrial shunt. The left atrium is borderline dilated. Right atrial size is normal. Mitral Valve: There is trace mitral regurgitation. The mitral valve is normal in structure and function. Aortic Valve: No aortic regurgitation is present. There is no aortic valve stenosis. The aortic valve is trileaflet. The aortic valve opens well. Tricuspid Valve: The right ventricular systolic pressure is estimated to be at least 29 mmHg based on an estimated right atrial pressure of 8 mm Hg. There is trace tricuspid regurgitation. The tricuspid valve is normal in structure and function. Pulmonic Valve: There is no pulmonic valvular regurgitation. The pulmonic valve leaflets are thin and pliable; valve motion is normal. Great Vessels: The dimensions of the ascending aorta are normal. The aortic root is normal size. The IVC is dilated (diameter is greater than 2.1 cm) yet it collapses greater than 50% with a sniff. This suggests a right atrial pressure of 8 mm Hg. Pericardium/ Pleura: There is no pericardial effusion. There is no pleural effusion. 2D and M-Mode Measurements and Calculations LVIDd: 4.5 cm AoV Openin.84 cm LVIDs: 3.0 cm LVOT diam: 1.96 cm IVSd: 0.71 cm Ao root diam: 2.6 cm LVPWd: 0.75 cm asc Aorta Diam: 2.8 cm LV morris. diameter/BSA (cm/m^2): 2.9 Ao Arch Diam (Prox Trans): 2.7 cm LV sys. 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 RA area: 11.0 furniture lumber production worker? LA A2 area: 18.8 furniture lumber production worker? RA long axis: 3.5 cm LA length (vol): 4.8 cm RA vol: 29.4 ml LA vol: 52.2 ml RA : 19.0 ml/mA? LA vol index: 33.8 ml/mA? Doppler Measurements and Calculations Ao V2 max: 139.0 cm/sec LVOT Max Soren: 91.4 cm/sec Ao V2 mean: 89.9 cm/sec LV V1 max P.3 mmHg Ao V2 VTI: 30.8 cm LV V1 VTI: 19.1 cm Ao max P.7 mmHg Ao mean P.8 mmHg BARBI(I,D): 1.88 furniture lumber production worker? BARBI(V,D): 1.99 furniture lumber production worker? BARBI indexed to BSA (cm^2/m^2): 1.22 sev ratio: 0.62 MV E max soren: 92.1 cm/sec MV dec time: 0.16 sec MV A max soren: 72.8 cm/sec MV E/A: 1.26 Med Peak E' Soren: 12.4 cm/sec Lat Peak E' Soren: 16.2 cm/sec E/e' average: 6.6 TR max soren: 226.4 cm/sec PA V2 max: 64.9 cm/sec TR max P.5 mmHg PA mean P.84 mmHg Electronically signed by: Moriah Calhoun M.D. 07/01/2020, 1: 28 AM
== END ==
PROVIDERS: Family Provider Urology; Referring Provider Internal Medicine; Visit Provider Internal Medicine
DX: C50.919 Malignant neoplasm of unspecified site of unspecified female breast (principal); Z79.899 Other long term (current) drug therapy
CPT/HCPCS: 93306

== ENCOUNTER → 2020-08-06 11:50 | Outpatient (CLI) | payer OTHER, SELFPAY ==
[2020-08-06 12:14] LABS: Add Manual Diff / Slide Review NO; Basophils Absolute Auto 0 /uL (0-100); Basophils Percent Auto 0.8 % (0-2); Eosinophils Absolute Auto 100 /uL (0-450); Hematocrit 36.3 % (36-46); Lymphocytes Absolute Auto 2200 /uL (1100-4500); Lymphocytes Percent Auto 35.6 % (25-40); Mean Corpuscular Hemoglobin 30.7 PG (26-34); Monocytes Absolute Auto 400 /uL (0-900); Monocytes Percent Auto 6.1 % (3-14); Neutrophils Absolute Auto 3500 /uL (1500-7000); Neutrophils Percent Auto 56.5 % (50-75); Platelet Count 218 X10^3/uL (150-400); Red Blood Cell Count 3.91 X10^6/uL (4.0-5.2); Red Cell Distribution Width 13.6 % (11.6-14.8); White Blood Cell Count 6.2 X10^3/uL (4.5-11.0)
== END ==
PROVIDERS: Family Provider Urology; Referring Provider Specialist; Visit Provider Specialist
DX: N93.9 Abnormal uterine and vaginal bleeding, unspecified (principal)
CPT/HCPCS: 36415; 85025

== ENCOUNTER → 2020-08-15 09:45 | Outpatient (CLI) | payer OTHER, SELFPAY ==
[2020-08-15 11:46] LABS: COVID19 -Nasal RAPID Negative (Negative)
== END ==
PROVIDERS: Family Provider Urology; Visit Provider Physician Assistant
DX: Z20.822 Contact with and (suspected) exposure to COVID-19 (principal)
CPT/HCPCS: 87635

== ENCOUNTER 2020-08-17 06:45 | Day surgery (SDC) | payer OTHER, SELFPAY ==
[2020-08-12 09:31] VITALS: BMI 25.2
[2020-08-17] VITALS (8 sets, daily range): BP systolic 130–164; BP diastolic 82–97; PULSE 55–80; RESP 10–17; TEMP 36.1–36.3; O2SAT 99–100; BMI 25.2
[2020-08-17] MEDS: LACTATED RINGERS 1,000 ML 42 ML IV (07:06)
--- NOTE | 2020-08-17 07:36 | PM.HP.1 ---
History of Present Illness History of Present Illness Date Patient Seen: 08/17/20 Time Patient Seen: 07:36 Chief complaint: SDC Narrative: Patient is post chemotherapy for breast cancer. She is here for port removal Patient History Medical History Breast cancer Former smoker Headache, migraine History of UTI Left wrist pain Prolactinoma Urinary frequency UTI (urinary tract infection) Surgical History H/O left mastectomy (04/03/19) Family & Social History Social History: household members spouse Tobacco & Substance use: Smoking Status Former smoker alcohol intake never alcohol intake frequency 0-2 drinks per day Substance Use Type marijuana,other Meds Home Medications and Allergies Home Medications Medication Instructions Recorded Confirmed Type Cranial Prosthesis (Wig) #1 each 10/15/19 07/07/20 Rx gabapentin 400 mg PO TID #90 cap 05/26/20 08/17/20 Rx lorazepam [Ativan] 0.5 mg PO Q6H PRN #30 tab 06/16/20 08/17/20 Rx tamoxifen 20 mg PO DAILY #90 tab 07/08/20 08/17/20 Rx solifenacin 10 mg tablet 10 mg PO DAILY 08/11/20 08/17/20 History aspirin 81 mg PO DAILY 08/12/20 08/17/20 History Allergies Allergy/AdvReac Type Severity Reaction Status Date / Time ibuprofen AdvReac Mild Nausea Verified 08/11/20 10:50 losartan AdvReac ITCHING Verified 08/11/20 10:50 Review of Systems Review of Systems ROS: Yes All systems reviewed with the patient and are negative except as otherwise documented Exam Vital Signs (past 8 hours): - 08/17/20 07:11 Temperature 97.4 F L Pulse Rate 72 Respiratory Rate 16 Blood Pressure 148/97 H Pulse Oximetry 100 Oxygen Delivery Method Room Air Narrative Exam Narrative: Cooperative in no apparent distress. Lungs are clear to auscultation. No rales or rhonchi. Heart regular rate and rhythm without murmur gallop. Chest wall without rash or cellulitis. Port felt in the right infraclavicular fossa. Patient is alert and oriented x3. Speech rate and content are appropriate. Affect is appropriate. Assessment & Plan Assessment & Plan narrative: Patient post chemotherapy for breast cancer for port removal. I have discussed the procedure including risks of bleeding infection scarring possible divot. She appears to understand wishes to proceed.
--- NOTE | 2020-08-17 08:00 | PM.PREOP ---
Pre-operative Note COVID-19 COVID-19 status: Negative Result date/Date tested (Pos, Neg/Pending): 08/14/20 Interval Note History & Physical reviewed/Exam performed by Physician: Yes Changes to H&P: No
--- NOTE | 2020-08-17 08:05 | SUR.OPER ---
Supine on padded OR bed, head on pillow, right arm padded and tucked at side, left arm secured to padded armboard <90 degrees abduction, legs uncrossed, safety belt at thigh, tape over blanket over lower legs .
[2020-08-17] MEDS: CEFAZOLIN 1 GM VIAL IV (08:11)
[2020-08-17] MEDS: BUPIVACAINE 0.5% (PF) VIAL 30 ML INJ (08:12)
--- NOTE | 2020-08-17 08:39 | PM.OP.1 ---
Operative Date/Time/Diagnoses Date of procedure: 08/17/20 Time of procedure: 08:40 Pre-op diagnosis: History of breast cancer post chemotherapy treatment Post-op diagnosis: same Procedure & Clinicians Procedure: Removal of Port-A-Cath Same procedure as scheduled: Yes Indications: Port-A-Cath in place. Removal as it is no longer needed. Surgeon: Be Chakraborty Click Yes if Unassisted: Yes Anesthesia Type: General Operative Notes Findings: Port removed intact Closure Type: primary Specimen(s): none sent Estimated Blood Loss (mL): 5 Blood products transfused: none Procedure in detail: Patient is placed supine on the operating room table and underwent general LMA anesthesia. She was prepped and draped in the usual fashion. Local anesthetic was infiltrated in a field block fashion around the port. Transverse incision was made through the old scar. Was carried down the level of the port. Catheter was identified and attachments to the soft tissue dissected off of it. A pursestring suture of 3-0 Vicryl was placed around the catheter insertion into the subQ. The catheter was removed and the pursestring tied. The port was then dissected out of the pocket using cautery. The subQ was closed with interrupted 3 0 Vicryl and the skin was closed a running 4-0 Vicryl subcuticular stitch and Steri-Strips. Dressing was applied. The patient was awakened and extubated. The patient was taken to the recovery area in good condition. Complications: none Post-operative Condition: stable Disposition: PACU
[2020-08-17] MEDS: ACETAMINOPHEN 325 MG TABLET 975 MG PO (09:06)
--- NOTE | 2020-08-17 09:16 | SUR.PHASEI ---
pt to PACU from OR, VSS, pt declined pain meds, states pain was tolerable. offered tylenol and pt accepted, order obtained from anesthesia. BP slightly elevated from admit, pt continued to decline pain meds, ice pack in place. report to rosy for phase II.
== END 2020-08-17 09:35 | disposition home or self-care (01) ==
PROVIDERS: Family Provider Urology; Referring Provider Specialist; Visit Provider Specialist
PROC: (CPT 36590; principal; 2020-08-17 07:45)
DX: Z45.2 Encounter for adjustment and management of vascular access device (principal); Z85.3 Personal history of malignant neoplasm of breast; G43.909 Migraine, unspecified, not intractable, without status migrainosus
CPT/HCPCS: 36590; J0690; J1100; J2250; J2405; J2704; J3010

== ENCOUNTER → 2020-09-11 13:10 | Outpatient (CLI) | payer OTHER, SELFPAY | PROVIDERS: Family Provider Urology; Referring Provider Internal Medicine; Visit Provider Internal Medicine | DX: C50.812 Malignant neoplasm of overlapping sites of left female breast; C50.412 Malignant neoplasm of upper-outer quadrant of left female breast; M85.852 Other specified disorders of bone density and structure, left thigh; Z82.62 Family history of osteoporosis; Z17.0 Estrogen receptor positive status [ER+]; Z79.811 Long term (current) use of aromatase inhibitors | CPT/HCPCS: 77080 ==

== ENCOUNTER → 2020-10-01 10:39 | Outpatient (CLI) | payer OTHER, SELFPAY ==
[2020-10-01 11:06] LABS: COVID19 -Nasal RAPID Negative (Negative)
== END ==
PROVIDERS: Family Provider Urology; Visit Provider Obstetrics & Gynecology
DX: Z01.812 Encounter for preprocedural laboratory examination (principal); Z20.822 Contact with and (suspected) exposure to COVID-19
CPT/HCPCS: 87635

== ENCOUNTER 2020-10-02 06:42 | Day surgery (SDC) | payer OTHER, SELFPAY ==
[2020-10-02] VITALS (9 sets, daily range): BP systolic 106–148; BP diastolic 63–92; PULSE 56–68; RESP 13–18; TEMP 36.3–36.7; O2SAT 98–100; BMI 25.4
--- NOTE | 2020-10-02 | PATH_ITS ---
[facility] Accession Number: [id number] . 01 Material submitted: . endometrium - ENDOMETRIAL CURETTINGS . 01 Clinical history: . SDC . 02 Diagnosis: Endometrium, Curettings: Scant endometrium and squamous epithelial fragments. No evidence of neoplasia or hyperplasia. MRV 10/06/2020 0946 Local . 02 Electronically signed: . Hannah Ragsdale MD, Pathologist NPI- [id number] . 01 Gross description: . ENDOMETRIAL CURETTINGS: Received in formalin are minute fragments of mucoid and hemorrhagic material measuring 2.0 x 1.0 x 0.1 cm in aggregate. Submitted in toto in 1 cassette. /QBJ 10/03/2020 0830 Local . 02 Pathologist provided ICD-10: N84.0 . 02 CPT . 388582 Performed at: 01 [facility] [address], [place], [place] [id number] MD Jean Diaz MD Phone: [phone] Performed at: 02 [facility] [address] [place], [place] [id number] MD Hannah Ragsdale MD Phone: [phone]
[2020-10-02] MEDS: ACETAMINOPHEN 325 MG TABLET 975 MG PO (07:22)
[2020-10-02] MEDS: GABAPENTIN 300 MG CAPSULE PO (07:23)
[2020-10-02] MEDS: LACTATED RINGERS 1,000 ML 100 ML IV (07:23)
[2020-10-02] MEDS: SCOPOLAMINE 1 PATCH TOP (07:23)
--- NOTE | 2020-10-02 07:52 | PM.PREOP ---
Pre-operative Note COVID-19 COVID-19 status: Negative Result date/Date tested (Pos, Neg/Pending): 10/02/20 Interval Note History & Physical reviewed/Exam performed by Physician: Yes Changes to H&P: Yes H&P completed within 30 days and has changed as indicated here:: Patient has stopped tamoxifen due to her bleeding, started lupron
--- NOTE | 2020-10-02 07:53 | PM.GYNHP.1 ---
History of Present Illness History of Present Illness Reason for admission: vaginal bleeding Narrative: This patient is a 40-year-old G0 with a history of ER/FL positive breast cancer status post mastectomy, chemotherapy, and treatment with Herceptin. Had previously been on tamoxifen 20 mg daily, recently transitioned to Lupron. Patient had heavy and irregular vaginal bleeding and a suspected endometrial polyp on ultrasound and biopsy, and was scheduled for operative hysteroscopy. She denies any further bleeding since stopping her tamoxifen in August. Patient reports that she used oral contraceptive pills prior to her diagnosis, though she had no indication of perimenopause. After starting the tamoxifen, she had no bleeding for approximately a year. She began having bleeding with 5 days of normal menstrual bleeding in May, followed by 2 months of spotting. She then had 2 separate episodes of heavy bleeding, with the most recent stopping yesterday. She reports that in the last week, she has had heavy bleeding, passing clots, at times feeling dizzy on standing and needing to change a pad every hour. She reports lower abdominal cramping with the worst of the bleeding, though this is improved as the bleeding has improved. The patient denies chest pain or palpitations, shortness of breath, change in bowel or bladder habits. She reports that she has had mild nausea and bloating since beginning tamoxifen, and that this is unchanged. 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 She denies any other contributory medical or surgical history except as above, denies any family history of gynecologic or other malignancies. She denies any contributory social history. She does not desire to preserve fertility. [facility] Medical History Breast cancer Former smoker Headache, migraine History of UTI Hot flashes Left wrist pain Prolactinoma Urinary frequency UTI (urinary tract infection) Surgical History H/O left mastectomy (04/03/19) History of removal of Port-a-Cath Social History household members: spouse Smoking Status: Former smoker alcohol intake: never substance use type: marijuana Meds Home Medications and Allergies Home Medications Medication Instructions Recorded Confirmed Type Cranial Prosthesis (Wig) #1 each 10/15/19 09/01/20 Rx solifenacin 10 mg tablet 10 mg PO DAILY 08/11/20 10/02/20 History aspirin 81 mg PO DAILY 08/12/20 10/02/20 History leuprolide [Lupron] 1 mg SUBCUT DAILY 10/02/20 10/02/20 History Allergies Allergy/AdvReac Type Severity Reaction Status Date / Time ibuprofen AdvReac Mild Nausea Verified 09/28/20 16:47 losartan AdvReac ITCHING Verified 09/28/20 16:47 Review of Systems Constitutional Constitutional: Reports system reviewed and no additional complaints, except as documented Gastrointestinal Gastrointestinal: Reports system reviewed and no additional complaints, except as documented Genitourinary Genitourinary: Reports as per HPI Neurologic Neurologic: Reports system reviewed and no additional complaints, except as documented Exam Vital Signs (past 8 hours): - 10/02/20 07:27 Temperature 98.1 F Pulse Rate 67 Respiratory Rate 16 Blood Pressure 148/92 H Pulse Oximetry 98 Oxygen Delivery Method Room Air Oxygen Flow Rate 0 Const General: cooperative, healthy appearing and comfortable GI Palpation: soft and No tender Assessment & Plan Assessment and plan (1) Abnormal uterine bleeding: Status: Acute Assessment & Plan narrative: This patient presents for operative hysteroscopy for suspected endometrial polyp. She reports that her bleeding has stopped since stopping tamoxifen, but desires to proceed as the surgery is scheduled. We discussed the risks of uterine perforation with damage to surrounding organs, of infection, and of hemorrhage, and the patient vocalized understanding and informed consents were signed. We discussed the alternative of expectant management. All questions preoperatively were answered.
--- NOTE | 2020-10-02 08:20 | SUR.OPER ---
Lithotomy on padded OR bed, head on pillow, arms secured on padded arm boards at <90 degrees abduction. Legs secured in padded yellow fins stirrups.
--- NOTE | 2020-10-02 08:37 | PM.OP.1 ---
Operative Date/Time/Diagnoses Date of procedure: 10/02/20 Time of procedure: 08:37 Pre-op diagnosis: abnormal uterine bleeding Post-op diagnosis: same Procedure & Clinicians Procedure: hysteroscopy and dilation and curettage Same procedure as scheduled: Yes Indications: abonormal uterine bleeding, suspected endometrial polyp Surgeon: Chloe Baum Click Yes if Unassisted: Yes Operative Notes Findings: Normal vulva, vagina and cervix. endometrial cavity with largely thin atrophic lining, some more glandular tissue on anterior wall but no polyp. Specimen(s): other (endometrial curettings) Estimated Blood Loss (mL): 5 Procedure in detail: After informed consent was obtained, the patient was taken to the operating room. Patient was sedated and placed in the dorsal lithotomy position. She was prepped and draped in the usual sterile fashion. The patient voided just prior to transfer to the operating room, and a test was negative. A speculum was placed in the vagina and the cervix easily visualized. Anterior lip of the cervix was grasped with a single-tooth tenaculum, and Hegar dilators used to gently dilate the cervix to 8 mm. The cervix dilated easily with minimal pressure. The hysteroscope was gently inserted through the cervix using hydrodilation, the endometrial cavity easily visualized. The endometrial cavity was largely atrophic, with some glandular tissue on the anterior wall but no visible polyps. The ostia were easily visualized bilaterally. The hysteroscope was removed and a gentle curettage was performed. The endometrial curettings were sent to pathology. The tenaculum was removed from the anterior lip of the cervix and spontaneous hemostasis was noted. The speculum was removed from the vagina. The patient tolerated the procedure well and was taken to PACU in stable condition. IV fluids: 400 cc lactated Ringer's Blood loss minimal Sorbitol distending fluid deficit essentially none Complications: none Post-operative Condition: stable Disposition: PACU Plan for aftercare: Home with routine precautions.
--- NOTE | 2020-10-02 08:38 | SUR.OPER ---
There was no endometrial polyp or fibroid visualized during hysteroscopy; not able to print pictures.
== END 2020-10-02 09:20 | disposition home or self-care (01) ==
PROVIDERS: Family Provider Urology; Referring Provider Obstetrics & Gynecology; Visit Provider Obstetrics & Gynecology
PROC: 0UDB8ZZ Extraction of Endometrium, Via Natural or Artificial Opening Endoscopic (ICD-10-PCS; CPT 58558; principal; 2020-10-02 07:45)
DX: N93.9 Abnormal uterine and vaginal bleeding, unspecified (principal); Z85.3 Personal history of malignant neoplasm of breast; K21.9 Gastro-esophageal reflux disease without esophagitis
CPT/HCPCS: 58558; 81025; 82962; J1100; J2250; J2405; J2704; J3010

== ENCOUNTER → 2020-11-05 06:38 | Outpatient (CLI) | payer OTHER, SELFPAY ==
--- NOTE | 2020-11-05 06:43 | DI.MRI.S_ITS ---
PROCEDURE: MR HEAD/BRAIN WO/W CON INDICATIONS: Follow-up exam, 6 months TECHNIQUE: Noncontrast axial T1 spin echo, axial T2 fast spin echo, sagittal and axial FLAIR, coronal T2 fast spin echo, axial gradient echo, axial diffusion and ADC through the brain. After the administration of contrast, axial and coronal 3D VIBE or T1 spin echo with fat saturation through the brain. COMPARISON: [facility], MR, MR HEAD/BRAIN WO/W CON, 05/20/2020, 11:26. [facility], MR, MR HEAD/BRAIN WO/W CON, 02/13/2020, 7:35. FINDINGS: Image quality: Excellent. CSF Spaces: Basal cisterns are patent. No extra-axial fluid collections. Ventricles are normal in size and shape. Brain: No midline shift. No intracranial bleeds or masses. No abnormal intracranial enhancement. The brainstem appears normal. Diffusion-weighted images demonstrate no acute ischemic insults. There is a 5 mm focus within the posterior lateral aspect of the right frontal lobe within the subcortical white matter seen on series 7, image 15 and series 5, image 6. This can be seen on postcontrast imaging series 13, image 98 axial projection. No contrast enhancement or susceptibility artifact is associated. This has been stable over time. No chronic ischemic insults. Normal intravascular flow voids are present. Skull and face: Calvarial marrow is normal in signal. Orbits appear normal. Sinuses: Sinuses and mastoids appear clear. IMPRESSION: Nonspecific focus of mild elevated FLAIR signal without contrast enhancement or susceptibility artifact within the subcortical white matter of the right frontal lobe, posterolateral position. No mass effect, no change house attendant time from prior brain MRI imaging 02/13/20 and 05/20/20. Benign etiology is presumed. No additional follow-up appears warranted based on imaging findings. Dictated by: Gonsalo Epperson M.D. on 11/05/2020 at 8:51 Approved by: Gonsalo Epperson M.D. on 11/05/2020 at 9:28
== END ==
PROVIDERS: Family Provider Urology; Referring Provider Internal Medicine; Visit Provider Internal Medicine
DX: C50.919 Malignant neoplasm of unspecified site of unspecified female breast (principal); R94.02 Abnormal brain scan
CPT/HCPCS: 70553

== ENCOUNTER → 2020-11-17 09:29 | Outpatient (CLI) | payer OTHER, SELFPAY ==
--- NOTE | 2020-11-17 09:33 | DI.MG.S_ITS ---
UNILATERAL RIGHT DIGITAL DIAGNOSTIC MAMMOGRAM 3D/2D POST MASTECTOMY: 11/17/2020 CLINICAL: Right breast lump. Comparison is made to exams dated: 05/20/2020 mammogram - [facility], 03/15/2019 mammogram, and 02/28/2019 mammogram - Seen [facility]. The tissue of right breast is heterogeneously dense. This may lower the sensitivity of mammography. No significant masses, calcifications, or other findings are seen in the breast. IMPRESSION: INCOMPLETE: NEEDS ADDITIONAL IMAGING EVALUATION There is no abnormality seen in the right breast to correspond with the palpable abnormality at 7 o'clock, however, ultrasound is recommended. Ultrasound will be performed immediately following the current exam. This exam was interpreted at Station ID: [id number]. NOTE: For mammograms, a report in lay terms will be sent to the patient. Approximately 15% of breast malignancies will not be visualized mammographically. In the management of a palpable breast mass, a negative mammogram must not discourage biopsy of a clinically suspicious lesion. Electronically Signed By: Jean Nguyễn M.D. ddp/:11/17/2020 10:38:50 copy to: Jo Casillas MD, [employer] ACR BI-RADS Category 0: Incomplete [id number]
--- NOTE | 2020-11-17 09:33 | DI.US.S_ITS ---
LIMITED ULTRASOUND OF RIGHT BREAST: 11/17/2020 CLINICAL: Palpable right breast lump. Hx mastectomy. Comparison is made to exams dated: 11/17/2020 mammogram, 05/20/2020 mammogram - [facility], 03/15/2019 mammogram, and 02/28/2019 mammogram - [facility]. Real-time ultrasound of the right breast 7 o'clock region was performed on the area of interest. No discrete cystic or solid mass lesion identified in the area of palpable abnormality. IMPRESSION: NEGATIVE There is no sonographic evidence of malignancy. There is no abnormality seen in the right breast to correspond with the palpable abnormality at 7 o'clock, however, clinical followup is recommended. Return to annual mammogram screening schedule is recommended. This exam was interpreted at Station ID: [id number]. Electronically Signed By: Jean Nguyễn M.D. ddp/:11/18/2020 08:45:37 copy to: Jo Casillas MD, [facility] letter sent: Clinical Evaluation Ultrasound BI-RADS: 1 Negative
== END ==
PROVIDERS: Family Provider Urology; Referring Provider Internal Medicine; Visit Provider Internal Medicine
DX: N63.13 Unspecified lump in the right breast, lower outer quadrant (principal)
CPT/HCPCS: 76642; 77065; G0279

== ENCOUNTER → 2020-11-26 08:51 | Outpatient (CLI) | payer OTHER, SELFPAY ==
[2020-11-26] MEDS: COVID-19 VACC #1, MRNA(MOD) 100 MCG/0.5 ML VIAL IM (08:55)
== END ==
PROVIDERS: Family Provider Urology; Visit Provider Internal Medicine
DX: Z23 Encounter for immunization (principal)
CPT/HCPCS: 0011A; 91301

== ENCOUNTER 2020-12-08 20:11 | Emergency (ER) | payer OTHER, SELFPAY ==
[2020-12-08 20:16] VITALS: BP 184/101; PULSE 74; RESP 20; TEMP 36.9; O2SAT 100
--- NOTE | 2020-12-08 20:49 | ED_ITS ---
HPI - Abdominal Pain General Chief Complaint: Abdominal Pain Stated Complaint: upper left abd pains Time Seen by Provider: 12/08/20 20:15 Source: patient Mode of arrival: Ambulatory Limitations: no limitations History of Present Illness HPI narrative: 40-year-old female former smoker with history of lung cancer pres ents with a chief complaint of some left upper quadrant pain that has been persistent for much of the day. She states it started soon after eating some citrus type food just prior to lunch. She states it is a sharp and aching pain that is significantly worse when she leans forward and seems to be exacerbated by eating or drinking. She denies any radiation of her pain. She states it is moderate in intensity. She has had gastritis in the past and thinks it feels perhaps like that. She does not drink alcohol and admits that she has been having some headaches and has therefore been taking NSAIDs for pain but tries to minimize them. She denies any fever chills. She denies nausea, vomiting or diarrhea. MD complaint: abdominal pain Onset (ago): hour(s) Pain Consistency: constant Location: LUQ Severity: moderate Quality: stabbing and aching Radiation: none Relieving factors: rest Exacerbating factors: eating and movement Associated symptoms: denies other symptoms Treatments prior to arrival: NSAIDs Related Data Home Medications Medication Instructions Recorded Confirmed solifenacin 10 mg tablet 10 mg PO DAILY 08/11/20 10/16/20 aspirin 81 mg PO DAILY 08/12/20 10/16/20 leuprolide 1 mg SUBCUT QMONTH 10/02/20 10/16/20 gabapentin 400 mg PO BID PRN 10/13/20 10/16/20 Previous Rx's Medication Instructions Recorded Cranial Prosthesis (Wig) #1 each 10/15/19 letrozole 2.5 mg PO DAILY #90 tab 10/13/20 pantoprazole [Protonix] 40 mg PO DAILY #30 tab 12/08/20 Allergies Allergy/AdvReac Type Severity Reaction Status Date / Time ibuprofen AdvReac Mild Nausea Verified 10/16/20 13:12 losartan AdvReac ITCHING Verified 10/16/20 13:12 Review of Systems Constitutional Constitutional: Denies chills, Denies fatigue, Denies fever(s), Denies frequent falls, Denies lethargy and Denies weakness Eyes Eyes: Denies change in vision, Denies eye discharge, Denies irritation and Denies loss of vision ENT Ears, Nose, Mouth, and Throat: Denies change in voice, Denies dizziness, Denies neck pain, Denies sore throat and Denies throat swelling Cardiovascular Cardiovascular: Denies chest pain, Denies irregular heart rhythm, Denies lightheadedness, Denies palpitations, Denies dyspnea, Denies dyspnea on exertion and Denies orthopnea Respiratory Respiratory: Denies cough, Denies dyspnea, Denies dyspnea on exertion and Denies wheezing Gastrointestinal Gastrointestinal: Reports abdominal pain, Denies change in bowel habits, Denies diarrhea, Denies nausea and Denies vomiting Musculoskeletal Musculoskeletal: Denies neck pain and Denies numbness Integumentary/Breasts Skin/Breast: Denies pruritus, Denies erythema, Denies rash and Denies wounds Neurologic Neurologic: Denies behavioral changes, Denies confusion, Denies dizziness, Denies frequent falls, Denies loss of vision, Denies numbness and Denies weakness Psychiatric Psychiatric: Denies anxiety, Denies behavioral changes, Denies confusion, Denies depression, Denies homicidal ideation and Denies suicidal ideation Endocrine Endocrine: Denies fatigue, Denies flushing and Denies palpitations Hematologic/Lymphatic Hematologic/Lymphatic: Denies easy bruising Allergic/Immunologic Allergic/Immunologic: Denies urticaria, Denies throat swelling and Denies wheezing Patient History Medical History Breast cancer Former smoker Headache, migraine History of UTI Hot flashes Left wrist pain Prolactinoma Urinary frequency UTI (urinary tract infection) Surgical History H/O left mastectomy (04/03/19) History of removal of Port-a-Cath Social History household members: spouse Smoking Status: Former smoker alcohol intake: never substance use type: marijuana Smoking Status: Former smoker alcohol intake frequency: 0-2 drinks per day Substance Use Type: marijuana and other Exam Narrative Exam Narrative: GENERAL: [40] year old patient appears stated age. Well- nourished, well-developed patient, in mild distress. HEAD: Atraumatic. Normocephalic. EYES: Pupils equal round and reactive. Extraocular motions intact. No scleral icterus. No injection or drainage. ENT: Nose without bleeding, purulent drainage. Throat without erythema, tonsillar hypertrophy or exudate. Airway patent. NECK: Trachea midline. Non tender CARDIOVASCULAR: Regular rate and rhythm without murmurs, gallops, or rubs. RESPIRATORY: Clear to auscultation. Breath sounds equal bilaterally. No wheezes, rales, or rhonchi. GASTROINTESTINAL: Abdomen soft, tender left upper quadrant, nondistended. EXTREMITIES: No edema or joint tenderness. BACK: Nontender without deformity or crepitance. No flank tenderness. NEURO: AOx3. SKIN: No rash or erythema of visible areas Initial Vital Signs Initial Vital Signs: Vital Signs Temperature 98.4 F 12/08/20 20:16 Pulse Rate 74 12/08/20 20:16 Respiratory Rate 20 12/08/20 20:16 Blood Pressure 184/101 H 12/08/20 20:16 Pulse Oximetry 100 12/08/20 20:16 Course Orders Ordered: ED Orders 12/08/20 20:55 Complete Blood Count AUTO DIFF Stat Comprehensive Metabolic Panel Stat Lipase Stat 12/08/20 21:21 XR acute abdomen series Stat Discontinued Medications Al Hydrox/Mg Hydrox/Simethicone 20 ml/ Lidocaine HCl 15 ml 0 ml PO NOW ONE Stop: 12/08/20 21:22 Last Admin: 12/08/20 21:34 Dose: 20 ml Documented by: VARUNYLE Sodium Chloride (Normal Saline 0.9%) 1,000 mls @ 150 mls/hr IV CONT FREIDA Last Admin: 12/08/20 21:03 Dose: 150 mls/hr Documented by: CECILIAROYLE Pantoprazole Sodium (Pantoprazole 40 Mg Vial) 40 mg IV NOW ONE Stop: 12/08/20 21:22 Last Admin: 12/08/20 21:33 Dose: 40 mg Documented by: CECILIAROYLE Vital Signs Vital signs: Vital Signs - 8 hr 12/08/20 22:14 Pulse Rate 71 Respiratory Rate 18 Blood Pressure 159/112 H Pulse Oximetry 99 MDM - Abdominal Pain Lab Data Result diagrams: 12/08/20 20:55 12/08/20 20:55 Labs: Lab Results 12/08/20 12/08/20 Range/Units 20:55 20:55 WBC 5.6 (4.5-11.0) X10^3/uL RBC 4.35 (4.0-5.2) X10^6/uL Hgb 13.3 (12.0-16.0) g/dL Hct 39.7 (36-46) % MCV 91.2 (80-100) fL MCH 30.6 (26-34) PG MCHC 33.6 (30-36) % RDW 13.9 (11.6-14.8) % Plt Count 252 (150-400) X10^3/uL Neut % (Auto) 41.1 L (50-75) % Lymph % (Auto) 47.5 H (25-40) % [place] % (Auto) 8.4 (3-14) % Eos % (Auto) 2.3 (2-4) % Baso % (Auto) 0.7 (0-2) % Neut # (Auto) 2300 (9884-2489) /uL Lymph # (Auto) 2700 (7943-6341) /uL [place] # (Auto) 500 (0-900) /uL Eos # (Auto) 100 (0-450) /uL Baso # (Auto) 0 (0-100) /uL Sodium 140 (137-145) mmol/L Potassium 3.7 (3.4-5.1) mmol/L Chloride 104 (98-107) mmol/L Carbon Dioxide 28 (22-32) mmol/L BUN 10 (7-17) mg/dL Creatinine 0.79 (0.52-1.04) mg/dL Estimated GFR > 60.0 (>60) mL/min BUN/Creatinine Ratio 12.7 (6-22) Glucose 89 (70-100) mg/dL Calcium 10.0 (8.4-10.2) mg/dL Total Bilirubin 0.3 (0.2-1.3) mg/dL AST 36 (14-36) IU/L ALT 18 (<35) IU/L Alkaline Phosphatase 118 (38-126) U/L Total Protein 7.3 (6.3-8.2) g/dL Albumin 4.4 (3.5-5.0) g/dL Globulin 2.9 (1.7-4.1) g/dL Albumin/Globulin Ratio 1.5 (1.0-2.8) Lipase 76 (23-300) U/L Point of care testing: Urine Dip Bedside Urine Glucose Negative Bedside Urine Bilirubin - Negative Bedside Urine Ketone - Negative Urine Specific [place] 1.015 Bedside Urine Occult Blood - Negative Bedside Urine pH 6 Bedside Urine Protein - Negative Bedside Urine Urobilinogen - Negative Bedside Urine Nitrite - Negative Bedside Urine Leukocytes - Negative Esterase Imaging Data Abdominal x-ray: Radiologist's Impression: [address] [id number] ReportSigned Patient: Laura Naik GMR#: [id number]: 1980Acct:[id number]/Sex: 40 / FDate of Service: 12/08/20Loc: EDAccession Number: [id number] Procedure: XR acute abdomen series Ordering Provider: See Handy D.O. PROCEDURE: XR ACUTE ABDOMEN SERIES INDICATIONS: LUQ pain TECHNIQUE: One view chest and two views of the abdomen were acquired. COMPARISON: None. FINDINGS: Surgical changes and devices: Surgical clips Chest: Lungs are clear. Heart size is normal. No pleural effusions. No pneumoperitoneum. Abdomen: Moderate stool. No specific transition point. Bones: No suspicious bony lesions. IMPRESSION: No specific evidence of bowel obstruction seen at this time although if the patient's symptoms do not improve, continued surveillance with abdominal series radiographs could be performed. Dictated by: Og Dale M.D. on 12/08/2020 at 22:11 Approved by: Og Dale M.D. on 12/08/2020 at 22:12 [facility] Narrative Medical decision making narrative: 40-year-old female develops left upper quadr ant pain after a few days of ingesting NSAIDs and consuming a large stack of citrus fruit. She has no fever or chills nor nausea or vomiting. Her pain is worse when she moves and improves with rest. She has very reassuring physical exam and labs as well as imaging. Her symptoms nearly completely resolve with Protonix and a GI cocktail. Other diagnoses such as bowel obstruction, GERD, pancreatitis considered but thought unlikely given history, physical exam, lab findings. Her pain is well controlled, she is tolerating oral hydration, shows no signs of infection, sepsis or surgical emergency. Return precautions given and questions answered to her apparent satisfaction Discharge Plan Departure Patient Disposition: Home Clinical Impression: Left upper quadrant abdominal pain Instructions: DI for Abdominal Pain-Adult Activity Restrictions/Additional Instructions: *You have been diagnosed with [left upper quadrant pain. Your story, exam and labs suggest the possibility of gastritis. X-ray shows a large amount of stool and constipation] *What to do: *Take medications as directed: Prescription sent to [facility] *Follow up with your primary care provider in 2-3 days, call for an appointment. Let them know you were seen in the Emergency Department and that we ask that you be seen in follow up *Return to ER if you should have any new, worsening or concerning symptoms, such as [increasing pain, fever greater than 101 F, shaking chills, other b othersome symptoms] Prescriptions: New pantoprazole [Protonix] 40 mg tablet,delayed release (DR/EC) 40 mg PO DAILY Qty: 30 RF: 0 No Action solifenacin 10 mg tablet 10 mg PO DAILY RF: 0 (DME) Cranial Prosthesis (Wig) Qty: 1 RF: 0 gabapentin 400 mg Tablet 400 mg PO BID PRN (Reason: Pain (Scale Score 4-6)) RF: 0 letrozole 2.5 mg Tablet 2.5 mg PO DAILY Qty: 90 RF: 3 aspirin 81 mg Tablet 81 mg PO DAILY RF: 0 leuprolide 1 mg/0.2 mL Kit 1 mg SUBCUT QMONTH RF: 0
[2020-12-08 21:03] LABS: Add Manual Diff / Slide Review NO; Basophils Absolute Auto 0 /uL (0-100); Basophils Percent Auto 0.7 % (0-2); Eosinophils Absolute Auto 100 /uL (0-450); Eosinophils Percent Auto 2.3 % (2-4); Hematocrit 39.7 % (36-46); Hemoglobin 13.3 g/dL (12.0-16.0); Lymphocytes Absolute Auto 2700 /uL (1100-4500); Lymphocytes Percent Auto 47.5 % (25-40); Mean Corpuscular HGB Conc 33.6 % (30-36); Mean Corpuscular Hemoglobin 30.6 PG (26-34); Mean Corpuscular Volume 91.2 fL (80-100); Monocytes Absolute Auto 500 /uL (0-900); Monocytes Percent Auto 8.4 % (3-14); Neutrophils Absolute Auto 2300 /uL (1500-7000); Neutrophils Percent Auto 41.1 % (50-75); Platelet Count 252 X10^3/uL (150-400); Red Blood Cell Count 4.35 X10^6/uL (4.0-5.2); Red Cell Distribution Width 13.9 % (11.6-14.8); White Blood Cell Count 5.6 X10^3/uL (4.5-11.0)
[2020-12-08] MEDS: SODIUM CHLORIDE 0.9% 1,000 ML 150 ML IV (21:03)
[2020-12-08 21:16] LABS: Alanine Aminotransferase 18 IU/L (<35); Albumin 4.4 g/dL (3.5-5.0); Albumin Globulin Ratio 1.5 (1.0-2.8); Alkaline Phosphatase 118 U/L (38-126); Aspartate Aminotransferase 36 IU/L (14-36); BUN Creatinine Ratio 12.7 (6-22); Bilirubin Total 0.3 mg/dL (0.2-1.3); Blood Urea Nitrogen 10 mg/dL (7-17); Carbon Dioxide 28 mmol/L (22-32); Chloride 104 mmol/L (98-107); Estimated Glomerular Filt Rate > 60.0 mL/min (>60); Globulin 2.9 g/dL (1.7-4.1); Glucose 89 mg/dL (70-100); HEMOLYSIS < 15 (0-50); Lipase 76 U/L (23-300); Potassium 3.7 mmol/L (3.4-5.1); Sodium 140 mmol/L (137-145); Total Protein 7.3 g/dL (6.3-8.2)
--- NOTE | 2020-12-08 21:21 | DI.RAD.S_ITS ---
PROCEDURE: XR ACUTE ABDOMEN SERIES INDICATIONS: LUQ pain TECHNIQUE: One view chest and two views of the abdomen were acquired. COMPARISON: None. FINDINGS: Surgical changes and devices: Surgical clips Chest: Lungs are clear. Heart size is normal. No pleural effusions. No pneumoperitoneum. Abdomen: Moderate stool. No specific transition point. Bones: No suspicious bony lesions. IMPRESSION: No specific evidence of bowel obstruction seen at this time although if the patient's symptoms do not improve, continued surveillance with abdominal series radiographs could be performed. Dictated by: Og Dale M.D. on 12/08/2020 at 22:11 Approved by: Og Dale M.D. on 12/08/2020 at 22:12
[2020-12-08] MEDS: PANTOPRAZOLE 40 MG VIAL IV (21:33)
[2020-12-08] MEDS: MAG HYDROX/ALUMINUM/SIMETH SUS 20 ML, LIDOCAINE VISCOUS 2% 15 ML PO (21:34)
[2020-12-08 22:14] VITALS: BP 159/112; PULSE 71; RESP 18; O2SAT 99
--- NOTE | 2020-12-10 13:22 | PC.NURSE ---
Per ED RN IVF's stopped at 2215 prior to discharge.
== END 2020-12-08 22:26 | disposition home or self-care (01) ==
PROVIDERS: Emergency Provider Emergency Medicine; Family Provider Urology
DX: R10.12 Left upper quadrant pain (principal)
CPT/HCPCS: 36415; 74022; 80053; 81003; 83690; 85025; 96361; 96374; 99284; C9113

== ENCOUNTER → 2020-12-24 07:30 | Outpatient (CLI) | payer OTHER, SELFPAY ==
[2020-12-24] MEDS: COVID-19 VACC #2, MRNA(MOD) 100 MCG/0.5 ML VIAL IM (07:37)
== END ==
PROVIDERS: Family Provider Urology; Visit Provider Internal Medicine
DX: Z23 Encounter for immunization (principal)
CPT/HCPCS: 0012A; 91301

== ENCOUNTER → 2021-02-20 08:47 | Outpatient (CLI) | payer OTHER, SELFPAY | PROVIDERS: Family Provider Urology; PCP Physician Assistant; Referring Provider Physician Assistant; Visit Provider Physician Assistant | DX: N34.3 Urethral syndrome, unspecified (principal) | CPT/HCPCS: 87086 ==

== ENCOUNTER → 2021-03-24 08:22 | Outpatient (CLI) | payer OTHER, SELFPAY ==
--- NOTE | 2021-03-24 08:33 | DIET.PN ---
Dietary Progress Note Assessment: 40y [address] visit for help with GI sx secondary to ongoing oncology tx. 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 Pt went off oral chemo for 2mo in Sep 03 and was able to eat and drink what wanted, went on new med and came to ED c bloating, now constipated, can't go off medication for next four years. Pt takes pepcid AC daily, has bloating and interstitial cystitis (tomato, citrus) which started during oncologic tx. Pt did 23&Me which showed gluten sensitivity. Pt recently started taking digestive enzymes c meals feels like they are helpful. Pt had GI doctor visit January 12 and started low FODMAP diet- gluten, beans, sugar alcohols seem to be problematic but pt restricting more than these food categories as was not instructed in reintroduction phase of FODMAPs. Pt desires help managing sx constipation and bloating as well as reintroducing more variety to diet. 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 Interventions: 1. To address bloating/constipation recc pt continue digestive enzymes taken with meals ensuring mix of lipase, cellulase, amylase, protease. 2. To address limited nature of current diet, educated pt on FODMAP reintroduction protocol using handouts. Pt instructed to keep food/sx journal and to reintroduce one food at a time, eating it daily x3d to decide if it is safe food or not. Pt will use this method to identify those food items which need to stay out of diet for now. 3. To address ongoing constipation, educated pt on MNT for constipation c handout including adequate hydration, soluble fiber, relaxation techniques, etc. 4. To address ongoing constipation, recc pt try magnesium citrate in form of Natural Calm drink mix. EER: 30g fiber daily focus on soluble fiber sources Monitoring/Evaluations: f/u in 1mo to assess pts diet for nutrient adequacy.
== END ==
PROVIDERS: Family Provider Urology; PCP Physician Assistant; Referring Provider Physician Assistant; Visit Provider Physician Assistant
DX: R14.0 Abdominal distension (gaseous) (principal); K59.00 Constipation, unspecified; N30.10 Interstitial cystitis (chronic) without hematuria; Z85.3 Personal history of malignant neoplasm of breast; Z71.3 Dietary counseling and surveillance
CPT/HCPCS: 97802

== ENCOUNTER 2021-04-15 12:19 | Emergency (ER) | payer OTHER, SELFPAY ==
[2021-04-15 12:31] VITALS: BP 160/95; PULSE 68; RESP 18; TEMP 36.9; O2SAT 98; BMI 24.4
--- NOTE | 2021-04-15 17:14 | ED.BACK ---
HPI - Back Pain/Injury General Chief Complaint: Back Pain/Injury Stated Complaint: BACK PAIN Source: patient Limitations: no limitations Related Data Home Medications Medication Instructions Recorded Confirmed solifenacin 10 mg tablet 10 mg PO DAILY 08/11/20 02/20/21 aspirin 81 mg tablet 81 mg PO DAILY 08/12/20 02/20/21 leuprolide 1 mg/0.2 mL 1 mg SUBCUT QMONTH 10/02/20 02/20/21 subcutaneous kit gabapentin 400 mg tablet 400 mg PO BID PRN 10/13/20 02/20/21 Previous Rx's Medication Instructions Recorded Cranial Prosthesis (Wig) #1 each 10/15/19 letrozole 2.5 mg tablet 2.5 mg PO DAILY #90 tab 10/13/20 pantoprazole 40 mg tablet,delayed 40 mg PO DAILY #30 tab 12/08/20 release (Protonix) cyclobenzaprine 10 mg tablet 10 mg PO TID PRN #20 tab 04/08/21 Allergies Allergy/AdvReac Type Severity Reaction Status Date / Time ibuprofen AdvReac Mild Nausea Verified 02/20/21 10:27 losartan AdvReac ITCHING Verified 02/20/21 10:27 Patient History Medical History Breast cancer Former smoker Headache, migraine History of UTI Hot flashes Left wrist pain Prolactinoma Urinary frequency UTI (urinary tract infection) Surgical History H/O left mastectomy (04/03/19) History of removal of Port-a-Cath Social History household members: spouse Smoking Status: Former smoker alcohol intake: never substance use type: marijuana Smoking Status: Former smoker alcohol intake frequency: 0-2 drinks per day Substance Use Type: marijuana and other Exam Initial Vital Signs Initial Vital Signs: Vital Signs Temperature 98.5 F 04/15/21 12:31 Pulse Rate 68 04/15/21 12:31 Respiratory Rate 18 04/15/21 12:31 Blood Pressure 160/95 H 04/15/21 12:31 Pulse Oximetry 98 04/15/21 12:31 Course Vital Signs Vital signs: Vital Signs - 8 hr 04/15/21 12:31 Temperature 98.5 F Pulse Rate 68 Respiratory Rate 18 Blood Pressure 160/95 H Pulse Oximetry 98 Discharge Plan Departure Patient Disposition: Left Without Being Seen Clinical Impression: Patient left after triage
== END 2021-04-15 13:04 | disposition left against medical advice (07) ==
PROVIDERS: Emergency Provider Emergency Medicine; Family Provider Urology; PCP Student in an Organized Health Care Education/Training Program
CPT/HCPCS: 99281

== ENCOUNTER 2021-05-21 08:37 | Emergency (ER) | payer OTHER, SELFPAY ==
[2021-05-21 08:38] VITALS: BP 142/91; PULSE 60; RESP 18; TEMP 36.4; O2SAT 99
--- NOTE | 2021-05-21 08:40 | ED_ITS ---
HPI - Chest Pain General Chief Complaint: Chest Pain Stated Complaint: chest pain since Monday Time Seen by Provider: 05/21/21 08:40 Source: patient Mode of arrival: Ambulatory Limitations: no limitations History of Present Illness HPI narrative: This is a 40-year-old female comes with complaint of left-sided chest pain. Patient had episode on Monday early in the morning which resolved after ibuprofen. Patient was seeing her oncology team. She did have a left mastectomy approximately 2 years ago, she was on tamoxifen for a period of time and then stopped and changed to letrozole. Patient states that it did not reoccur until this morning about 0 300. Since then it has been constant. It is worse with certain types of movement. It is sort of mid substernal to the left side of her chest sometimes the neck but not persistently. No arm, back or abdominal pain. Has not been changing location. Patient denies any shortness breath. She does states it is worse with deep inhalation. She denies any swel ling of her extremities. No numbness, tingling or weakness. No nausea or vomiting. No lightheadedness or passing out. Patient denies any other daily medications. She denies any other past medical issues. But besides mastectomy no other prior surgeries. No known drug allergies. No tobacco, alcohol or illicit. No pulmonary, embolic or cardiac history in her family according to the patient. Her PCP is Dr. Washington and Dr. Murphy for oncology. Related Data Home Medications Medication Instructions Recorded Confirmed solifenacin 10 mg tablet 10 mg PO DAILY 08/11/20 02/20/21 leuprolide 1 mg/0.2 mL 1 mg SUBCUT QMONTH 10/02/20 02/20/21 subcutaneous kit Previous Rx's Medication Instructions Recorded Cranial Prosthesis (Wig) #1 each 10/15/19 letrozole 2.5 mg tablet 2.5 mg PO DAILY #90 tab 10/13/20 cyclobenzaprine 10 mg tablet 10 mg PO TID PRN #20 tab 04/08/21 Allergies Allergy/AdvReac Type Severity Reaction Status Date / Time ibuprofen AdvReac Mild Nausea Verified 02/20/21 10:27 losartan AdvReac ITCHING Verified 02/20/21 10:27 Review of Systems Review of Systems ROS Unobtainable: All systems reviewed & are unremarkable except as noted in HPI and below Patient History Medical History Breast cancer Former smoker Headache, migraine History of UTI Hot flashes Left wrist pain Prolactinoma Urinary frequency UTI (urinary tract infection) Surgical History H/O left mastectomy (04/03/19) History of removal of Port-a-Cath Social History household members: spouse Smoking Status: Former smoker alcohol intake: never substance use type: marijuana Smoking Status: Former smoker alcohol intake frequency: 0-2 drinks per day Substance Use Type: marijuana and other Exam Narrative Exam Narrative: GENERAL: Alert and oriented x three, mild distress. HEENT: Head normocephalic, atraumatic, EOMI, pupils reactive, face symmetric, moist mucous membranes NECK: Supple, full range of motion CARDIOVASCULAR: Regular rate and rhythm without murmurs, rubs or gallops. No rashes or skin changes anterior chest. Patient has mild tenderness of left anterior chest. RESPIRATORY: Breath sounds equal bilaterally, no wheezes rales or rhonchi. ABDOMEN: Soft, nontender. Normoactive bowel sounds all 4 quadrants. No guarding or rebound, rigidity, no mass : No CVA tenderness EXTREMITIES: Normal range of motion, no clubbing or edema. Neurovascularly intact. NEUROLOGICAL: Cranial nerves II through XII grossly intact. Moving all extremities SKIN: Warm, dry, no petechiae, no rashes or lesions. Initial Vital Signs Initial Vital Signs: Vital Signs Temperature 97.5 F L 05/21/21 08:38 Pulse Rate 60 05/21/21 08:38 Respiratory Rate 18 05/21/21 08:38 Blood Pressure 142/91 H 05/21/21 08:38 Pulse Oximetry 99 05/21/21 08:38 Scores PERC Score Age greater than or equal to 50 years: No Heart rate greater than or equal to 100 bpm: No Room Air O2 Sat less than 95%: No Unilateral leg swelling: No Recent trauma or surgery: No Hemoptysis: No Prior PE or DVT: No Hormone Use: No Total PERC Score: 0 Course Orders Ordered: ED Orders 05/21/21 08:52 EKG-12 Lead Stat 05/21/21 08:54 Complete Blood Count AUTO DIFF Stat Comprehensive Metabolic Panel Stat Lipase Stat Troponin & CK Cardiac Panel Stat 05/21/21 08:59 XR chest 1V Stat 05/21/21 09:15 D Dimer Stat 05/21/21 09:50 CT angio chest PE protocol Stat Vital Signs Vital signs: Vital Signs - 8 hr 05/21/21 08:38 05/21/21 08:46 05/21/21 09:00 Temperature 97.5 F L Pulse Rate 60 64 64 Respiratory Rate 18 18 Blood Pressure 142/91 H 142/91 H Pulse Oximetry 99 100 97 05/21/21 09:30 Temperature Pulse Rate 60 Respiratory Rate 20 Blood Pressure 125/81 Pulse Oximetry 97 MDM - Chest Pain Lab Data Result diagrams: 05/21/21 08:54 05/21/21 08:54 Labs: Lab Results 05/21/21 05/21/21 05/21/21 Range/Units 08:54 08:54 09:15 WBC 4.9 (4.5-11.0) X10^3/uL RBC 4.32 (4.0-5.2) X10^6/uL Hgb 13.0 (12.0-16.0) g/dL Hct 39.2 (36-46) % MCV 90.8 (80-100) fL MCH 30.1 (26-34) PG MCHC 33.1 (30-36) % RDW 13.8 (11.6-14.8) % Plt Count 236 (150-400) X10^3/uL Neut % (Auto) 48.6 L (50-75) % Lymph % (Auto) 40.4 H (25-40) % Bradford % (Auto) 8.1 (3-14) % Eos % (Auto) 2.4 (2-4) % Baso % (Auto) 0.5 (0-2) % Neut # (Auto) 2400 (0530-9200) /uL Lymph # (Auto) 2000 (0408-2212) /uL Bradford # (Auto) 400 (0-900) /uL Eos # (Auto) 100 (0-450) /uL Baso # (Auto) 0 (0-100) /uL D-Dimer 280 H (<230) ng/mL Sodium 140 (137-145) mmol/L Potassium 4.0 (3.4-5.1) mmol/L Chloride 104 (98-107) mmol/L Carbon Dioxide 30 (22-32) mmol/L BUN 13 (7-17) mg/dL Creatinine 0.54 (0.52-1.04) mg/dL Estimated GFR > 60.0 (>60) mL/min BUN/Creatinine Ratio 24.1 H (6-22) Glucose 90 (70-100) mg/dL Calcium 9.6 (8.4-10.2) mg/dL Total Bilirubin 0.5 (0.2-1.3) mg/dL AST 27 (14-36) IU/L ALT 16 (<35) IU/L Alkaline Phosphatase 114 (38-126) U/L Total Creatine Kinase 55 (30-135) U/L CK-MB (CK-2) TNP CK-MB (CK-2) Rel Index TNP Troponin I < 0.012 (0.01-0.034) ng/mL Total Protein 7.1 (6.3-8.2) g/dL Albumin 4.4 (3.5-5.0) g/dL Globulin 2.7 (1.7-4.1) g/dL Albumin/Globulin Ratio 1.6 (1.0-2.8) Lipase 71 (23-300) U/L Imaging Data Chest x-ray: Radiologist's Impression: [address] [address] XRay Report Signed Patient: Laura Naik MR#: [id number] : 1980 Acct:[id number] Age/Sex: 40 / F Date of Service: 05/21/21 Loc: ED Accession Number: [id number] ?? Procedure: XR chest 1V Ordering Provider: Mei Eagle D.O. PROCEDURE:? XR CHEST 1V ? INDICATIONS:? chest pain ? TECHNIQUE:? One view of the chest was acquired.? ? [facility] ? FINDINGS:? ? Surgical changes and devices:? None.? ? Lungs and pleura:? Lungs are clear.? No pleural effusions or pneumothorax.? ? Mediastinum:? Mediastinal contours appear normal.? Heart size is normal.? ? Bones and chest wall:? No suspicious bony lesions.? Overlying soft tissues appear unremarkable.? ? IMPRESSION:? No acute process. ? ? Dictated by: Sarahi Worrell M.D. on 05/21/2021 at 9:17 ? ? Approved by: Sarahi Worrell M.D. on 05/21/2021 at 9:17?? ECG Data Attestation: I personally reviewed and interpreted this ECG as follows: Prior ECG tracings: not available for review Interpretation: Normal sinus rhythm rate of 65 [place] 116 QRS is 72 and QTC of 420. No acute ST changes appreciated. MDM Narrative Medical decision making narrative: This is a 40-year-old female with left-sided chest pain occurred Monday resolved and then recurred this morning. It has been present for almost 6 hours. Troponin is negative, patient's labs are unremarkable D-dimer was included as she has some risk factors with prior cancer although she is on anti estrogen medications. Patient dimer was slightly elevated and CT angio was obtained which does not show any new changes negative for pulmonary emboli with some tiny stable nodules. Discussed with patient. Deepak treviño does have some musculoskeletal type symptoms and she feels comfortable continuing at home with Tylenol/ibuprofen. Discharge Plan Departure Patient Disposition: Home Clinical Impression: Chest pain Instructions: DI for Chest Pain Activity Restrictions/Additional Instructions: Your CT shows a small stable unchanged nodules on the left. I suspect your chest pain is more musculoskeletal. Your labs, EKG and imaging are otherwise reassuring. If you find it helpful you may continue with ibuprofen up to 600 mg every 6 hours and/or Tylenol up to a 1000 mg every 8 hours. Please return for fevers, new or worsening pain, shortness of breath, lightheadedness or passing out, persistent vomiting, swelling of your extremities, redness, warmth or sign of infection, new rashes or other new or concerning symptoms. Prescriptions: No Action cyclobenzaprine 10 mg tablet 10 mg PO TID PRN (Reason: muscle spasm) Qty: 20 RF: 0 solifenacin 10 mg tablet 10 mg PO DAILY RF: 0 (DME) Cranial Prosthesis (Wig) Qty: 1 RF: 0 letrozole 2.5 mg Tablet 2.5 mg PO DAILY Qty: 90 RF: 3 leuprolide 1 mg/0.2 mL Kit 1 mg SUBCUT QMONTH RF: 0 Referrals: Cindy Washington DO [Primary Care Provider] -
[2021-05-21 08:46] VITALS: PULSE 64; O2SAT 100
--- NOTE | 2021-05-21 08:59 | DI.RAD.S_ITS ---
PROCEDURE: XR CHEST 1V INDICATIONS: chest pain TECHNIQUE: One view of the chest was acquired. COMPARISON: [facility], CR, XR CHEST 1V, 06/17/2019, 14:01. FINDINGS: Surgical changes and devices: None. Lungs and pleura: Lungs are clear. No pleural effusions or pneumothorax. Mediastinum: Mediastinal contours appear normal. Heart size is normal. Bones and chest wall: No suspicious bony lesions. Overlying soft tissues appear unremarkable. IMPRESSION: No acute process. Dictated by: Sarahi Worrell M.D. on 05/21/2021 at 9:17 Approved by: Sarahi Worrell M.D. on 05/21/2021 at 9:17
[2021-05-21 09:00] VITALS: BP 142/91; PULSE 64; RESP 18; O2SAT 97
[2021-05-21 09:12] LABS: Add Manual Diff / Slide Review NO; Basophils Absolute Auto 0 /uL (0-100); Basophils Percent Auto 0.5 % (0-2); Eosinophils Absolute Auto 100 /uL (0-450); Eosinophils Percent Auto 2.4 % (2-4); Hematocrit 39.2 % (36-46); Lymphocytes Absolute Auto 2000 /uL (1100-4500); Lymphocytes Percent Auto 40.4 % (25-40); Mean Corpuscular HGB Conc 33.1 % (30-36); Mean Corpuscular Hemoglobin 30.1 PG (26-34); Mean Corpuscular Volume 90.8 fL (80-100); Monocytes Absolute Auto 400 /uL (0-900); Monocytes Percent Auto 8.1 % (3-14); Neutrophils Absolute Auto 2400 /uL (1500-7000); Neutrophils Percent Auto 48.6 % (50-75); Platelet Count 236 X10^3/uL (150-400); Red Blood Cell Count 4.32 X10^6/uL (4.0-5.2); Red Cell Distribution Width 13.8 % (11.6-14.8); White Blood Cell Count 4.9 X10^3/uL (4.5-11.0)
[2021-05-21 09:18] LABS: Alanine Aminotransferase 16 IU/L (<35); Albumin 4.4 g/dL (3.5-5.0); Albumin Globulin Ratio 1.6 (1.0-2.8); Alkaline Phosphatase 114 U/L (38-126); Aspartate Aminotransferase 27 IU/L (14-36); BUN Creatinine Ratio 24.1 (6-22); Bilirubin Total 0.5 mg/dL (0.2-1.3); Blood Urea Nitrogen 13 mg/dL (7-17); Calcium 9.6 mg/dL (8.4-10.2); Carbon Dioxide 30 mmol/L (22-32); Chloride 104 mmol/L (98-107); Creatine Kinase 55 U/L (30-135); Estimated Glomerular Filt Rate > 60.0 mL/min (>60); Globulin 2.7 g/dL (1.7-4.1); Glucose 90 mg/dL (70-100); HEMOLYSIS < 15 (0-50); Lipase 71 U/L (23-300); Sodium 140 mmol/L (137-145); Total Protein 7.1 g/dL (6.3-8.2)
[2021-05-21 09:30] VITALS: BP 125/81; PULSE 60; RESP 20; O2SAT 97
[2021-05-21 09:30] LABS: Troponin I < 0.012 ng/mL (0.01-0.034)
[2021-05-21 09:36] LABS: D Dimer 280 ng/mL (<230)
--- NOTE | 2021-05-21 09:50 | DI.CT.S_ITS ---
PROCEDURE: CT ANGIO CHEST PE PROTOCOL INDICATIONS: L chest pain, hx mastectomy 2 yr ago. TECHNIQUE: After the administration of intravenous contrast, 2 mm thick sections acquired from the pulmonary apices to the posterior costophrenic angles. 3-dimensional maximum intensity projection (MIP) coronal and sagittal reformats were then acquired through the thorax. For radiation dose reduction, the following was used: automated exposure control, adjustment of mA and/or kV according to patient size. COMPARISON: [facility], CT, CT ANGIO CHEST PE PROTOCOL, 09/13/2019, 20:43. FINDINGS: Image quality: Excellent. Pulmonary arteries: Pulmonary arteries are normal in size, and demonstrate no intraluminal filling defects to suggest central pulmonary embolism. Lungs and pleura: There is no acute airspace opacity. Patient's known tiny pulmonary nodules are again seen with largest nodule seen in anterior left lower lobe and measures 3 mm in size unchanged from prior study series 5 image 111. No pleural effusions or pneumothorax. Central and peripheral airways are patent. Mediastinum: Heart size is normal, without pericardial effusion. No mediastinal or hilar adenopathy. Thoracic aorta is normal in caliber and enhancement. Esophagus is normal in caliber, without hiatal hernia. Bones and chest wall: No suspicious bony lesions. Ribs and thoracic spine appear intact throughout. Thyroid gland is within normal limits. No axillary or supraclavicular adenopathy. Post left mastectomy changes are seen. Abdomen: Visualized upper abdominal solid organs appear normal in the early arterial phase of enhancement. IMPRESSION: 1. No evidence of pulmonary embolism. No thoracic aortic aneurysm. 2. No mediastinal or hilar lymphadenopathy. 3. Stable tiny 3 millimeter left lower lobe nodule. No new pulmonary nodule is seen. Airway is patent. 4. Prior left mastectomy with stable postsurgical changes. Dictated by: Terrence Ponce M.D. on 05/21/2021 at 10:08 Approved by: Terrence Ponce M.D. on 05/21/2021 at 10:18
[2021-05-21 10:45] VITALS: BP 120/80; PULSE 80; RESP 18; O2SAT 98
== END 2021-05-21 10:49 | disposition home or self-care (01) ==
PROVIDERS: Emergency Provider Emergency Medicine; Family Provider Urology; PCP Student in an Organized Health Care Education/Training Program
DX: R07.9 Chest pain, unspecified (principal)
CPT/HCPCS: 36415; 71045; 71275; 80053; 82550; 83690; 84484; 85025; 85379; 93005; 99284

== ENCOUNTER → 2021-06-01 13:22 | Outpatient (CLI) | payer OTHER, SELFPAY ==
[2021-06-01 17:07] LABS: Vitamin D 25 Hydroxy (D3) 29.4 ng/mL (30.0-100.0)
== END ==
PROVIDERS: Family Provider Urology; PCP Student in an Organized Health Care Education/Training Program; Referring Provider Physician Assistant; Visit Provider Physician Assistant
DX: Z78.9 Other specified health status (principal)
CPT/HCPCS: 36415; 82306

== ENCOUNTER → 2021-09-23 14:12 | Outpatient (CLI) | payer OTHER, SELFPAY | PROVIDERS: Family Provider Urology; PCP Student in an Organized Health Care Education/Training Program; Visit Provider Nurse Practitioner Family | DX: R30.0 Dysuria (principal) | CPT/HCPCS: 87086 ==

== ENCOUNTER → 2021-11-22 13:25 | Outpatient (CLI) | payer OTHER, SELFPAY ==
--- NOTE | 2021-11-22 | DI.MG.S_ITS ---
UNILATERAL RIGHT DIGITAL SCREENING MAMMOGRAM 3D/2D WITH CAD POST MASTECTOMY: 11/22/2021 CLINICAL: Routine screening. Personal history of right breast cancer. Comparison is made to exams dated: 11/17/2020 mammogram, 05/20/2020 mammogram - [facility], and 03/15/2019 mammogram - [facility]. The tissue of right breast is heterogeneously dense. This may lower the sensitivity of mammography. Current study was also evaluated with a Computer Aided Detection (CAD) system. No significant masses, calcifications, or other findings are seen in the breast. There has been no significant interval change. IMPRESSION: NEGATIVE There is no mammographic evidence of malignancy. A 1 year screening mammogram is recommended. This exam was interpreted at Station ID: [id number]. NOTE: For mammograms, a report in lay terms will be sent to the patient. Approximately 15% of breast malignancies will not be visualized mammographically. In the management of a palpable breast mass, a negative mammogram must not discourage biopsy of a clinically suspicious lesion. Electronically Signed By: Loretta hoyos/hakan:11/22/2021 14:25:14 copy to: Jo Casillas MD, [employer] letter sent: Normal Exam ACR BI-RADS Category 1: Negative [id number]
== END ==
PROVIDERS: Family Provider Student in an Organized Health Care Education/Training Program; PCP Student in an Organized Health Care Education/Training Program; Referring Provider Internal Medicine Medical Oncology; Visit Provider Internal Medicine Medical Oncology
DX: Z12.31 Encounter for screening mammogram for malignant neoplasm of breast (principal); Z80.3 Family history of malignant neoplasm of breast
CPT/HCPCS: 77063; 77067